=== PATIENT | female | born 1955 | race Caucasian/White ===

== ENCOUNTER 2020-08-10 08:03 | Outpatient (CLI) | payer MEDICARE, OTHER, SELFPAY ==
--- NOTE | 2020-08-11 08:12 | P.PCNPFT_ITS ---
PFT Interpretation This is a pulmonary function test with pre and post-bronchodilator spirometry, plethysmography and diffusing capacity. The test was performed and results interpreted in accordance with the 2019 and 2005 ATS/ERS Task Force guidelines respectively using the Global Lung Function Initiative-2012 reference equations. Patient demonstrated good effort and c ooperation. Reproducibility criteria were met. The quality of the pre bronchodilator spirometry maneuver was Grade B and post bronchodilator spirometry maneuver was Grade A. Of note the patient had persistent coughing during the testing. Findings: Spirometry: There is a low normal maximal expiratory airflow. The contour the inspiratory flow tracing is normal. The pre bronchodilator FVC is 2.42 L, 81% predicted. The pre bronchodilator FEV1 is 1.72 L, 74% predicted. The FEV1: FVC ratio is 71%. The post bronchodilator FVC is 2.32 L, representing a 4% decrease. The post bronchodilator FEV1 is 1.64, representing a 5% decrease. Plethysmography: The total lung capacity is 8.49 L, 167% predicted. The functional residual capacity is 7.17 L, 248% predicted. The residual volume is 6.08 L, 284% predicted. Diffusing capacity: The absolute diffusion capacity is 11.9, 57% predicted. The diffusing capacity corrected for alveolar volume is 3.66, 84% predicted. Impression: The spirometry is normal without evidence of an obstructive abnormality. There is no significant improvement after inhaling a single dose of albuterol. The lung volumes are normal. The diffusing capacity is normal. Impression: There is low normal expiratory flows and a low normal FEV1. This pattern is consistent with small airways disease. The increase in residual volume is consistent with air trapping and hyperinflation is present is demonstrated by the increase in functional residual capacity and total lung capacity. The absolute diffusing capacity is moderately decreased and normalizes when corrected for alveolar volume. There are no prior studies for comparison
== END 2020-08-10 08:04 | disposition home or self-care (01) ==
PROVIDERS: PCP Family Medicine; Visit Provider Family Medicine
DX: R05 Cough (principal)
CPT/HCPCS: 94060; 94726; 94729

== ENCOUNTER 2021-04-17 18:03 | Inpatient (IN) | payer MEDICARE, OTHER, SELFPAY ==
[2021-04-17] VITALS (28 sets, daily range): BP systolic 109–126; BP diastolic 57–88; PULSE 90–132; RESP 13–43; TEMP 36.6–37.7; O2SAT 87–97; BMI 27.0
--- NOTE | ~2021-04-17 | XR_ITS ---
EXAMINATION: XR chest 1V portable EXAM DATE: 04/17/2021 19:08 INDICATION: Shortness of breath, Cough, Intermittent Fever X 4 Days. TECHNIQUE: Portable AP frontal chest x-ray was obtained. There is no prior study for comparison. FINDINGS: Moderate amount of left perihilar predominant airspace disease likely acute process such as pneumonia or edema. Please clinically correlate. Heart is normal in size. No pneumothorax. Some righ t lung granulomata. There is no pneumothorax suspected. There are no pleural effusions. There are mil d bony degenerative changes. IMPRESSION: Moderate amount of left perihilar pneumonia or edema. Reviewed, dictated and finalized at location A. ION BEAMER
--- NOTE | ~2021-04-17 | CT_ITS ---
EXAMINATION: CTA chest PE protocol DATE: 04/18/2021 14:25 INDICATION: Shortness of breath and hypoxia TECHNIQUE: Computed tomography angiography (CTA) of the chest was performed with 100 mL Omnipaque-350 intravenous contrast timed to evaluate the pulmonary arteries. Coronal maximum intensity projection 3D-reconstructions were created by the technologist. The dose-length product (DLP) was 478.21 mGy-cm. Automated exposure control and iterative reconstruction technique were employed. COMPARISON: 09/01/2017 FINDINGS: The pulmonary arteries are well-opacified. No pulmonary embolism is identified. There are d iffuse groundglass opacities throughout the left lung. No pleural effusion or pneumothorax is identif ied. There is an approximately 2.9 x 2.5 cm right perihilar mass versus lymphadenopathy which obstruc ts the middle lobe bronchus causing near complete collapse of the right middle lobe. Cardiomegaly is noted. There is mild mediastinal lymphadenopathy. There is mild thoracic spondylosis. IMPRESSION: 1. No pulmonary embolus. 2. Diffuse groundglass opacities throughout the left lung which could reflect atypical pneumonia vers us pulmonary edema. 3. Right hilar mass obstructing the right middle lobe bronchus and causing near complete collapse of the middle lobe. Finding is concerning for primary bronchogenic carcinoma. Bronchoscopy is recommende d. Reviewed, dictated and finalized at location B. AND FRAMES PRESCRIPTION CLERK IMPRESSION: 1. No pulmonary embolus. 2. Diffuse groundglass opacities throughout the left lung which could reflect a typical pneumonia versus pulmonary edema. 3. Right hilar mass obstructing the right middle lobe bronchus and causing near complete collapse of the middle lobe. Finding is concerning for primary bronch ogenic carcinoma. Bronchoscopy is recommended.
--- NOTE | ~2021-04-17 | XR_ITS ---
EXAMINATION: XR chest 1V portable INDICATION: Pneumonia and shortness of breath TECHNIQUE: Portable AP chest at 0916 hours COMPARISON: 04/17/2021 FINDINGS: There are persistent diffuse asymmetric interstitial and airspace opacities of the left rohini g with slight improvement. No pleural effusion or pneumothorax is identified. The heart size is le l. IMPRESSION: 1. Persistent asymmetric opacities throughout the left lung with slight improvement, consistent with atypical pneumonia versus pulmonary edema. Reviewed, dictated and finalized at location B. OSTRIPPER IMPRESSION: 1. Persistent asymmetric opacities throughout the left lung with slight improve ment, consistent with atypical pneumonia versus pulmonary edema.
--- NOTE | ~2021-04-17 | US_ITS ---
EXAMINATION: US venous doppler [facility] DATE: 04/18/2021 14:49 INDICATION: Shortness of breath TECHNIQUE: Gross scale images without and with compression and Doppler images of the bilateral lower e xtremity veins were obtained. COMPARISON: None FINDINGS: The right common femoral vein, profunda femoral vein, femoral vein, popliteal vein, peroneal trunk, p osterior tibial veins, and greater saphenous vein are patent. The left common femoral vein, profunda femoral vein, femoral vein, popliteal vein, peroneal trunk, po sterior tibial veins, and greater saphenous vein are patent. IMPRESSION: 1. Patent bilateral lower extremity veins. No evidence of deep venous thrombosis. Reviewed, dictated and finalized at location B. PERSON IMPRESSION: 1. Patent bilateral lower extremity veins. No evidence of deep venous thrombosi s.
--- NOTE | 2021-04-17 18:36 | ECG_ITS ---
Measurements Intervals [place] Rate: 129 P: 13 ID: [id number] QRS: -32 QRSD: 71 T: 51 QT: 336 QTc: 493 Interpretive Statements SINUS TACHYCARDIA VENTRICULAR COUPLET AND VENTRICULAR PREMATURE COMPLEX LEFT AXIS DEVIATION ANTERIOR INFARCT, AGE INDETERMINATE INFERIOR INFARCT, AGE INDETERMINATE BORDERLINE ST-T WAVE ABNORMALITY- LAT/HIGH LAT LEADS BASELINE ARTIFACT- I, II, III, AVR, AVF, V1, V3-V6 ABNORMAL ECG Electronically Signed On 04-17-2021 20:17:32 RACK WASHER by Nakul Mar D.O.
--- NOTE | 2021-04-17 18:40 | ED.GENADULT ---
HPI - General Adult General Chief complaint: Shortness of Breath/Dyspnea Stated complaint: SOB Time Seen by Provider: 04/17/21 18:19 Source: patient and RN notes reviewed History of Present Illness HPI narrative: Patient is a 65 y/o female complaining severe SOB for last 4 days. She states her SOB is worse with minimal exertion and supine position. She also has some cough, fever and chest discomfort. She has no leg swelling. Related Data Home Medications Medication Instructions Recorded Confirmed aspirin 325 mg tablet 325 mg PO DAILY 04/20/19 03/13/21 olmesartan [Benicar] 04/17/21 Allergies Allergy/AdvReac Type Severity Reaction Status Date / Time No Known Allergies Allergy Verified 03/13/21 08:54 Review of Systems Constitutional: Constitutional: Denies chills, Reports fever(s), Denies headache(s) and Denies weakness Eyes: Eyes: Denies blurry vision ENT: Denies headache(s) and Denies neck pain Cardiovascular: Cardiovascular: Reports chest pain and Reports dyspnea Respiratory: Respiratory: Reports cough and Reports dyspnea Gastrointestinal: Gastrointestinal: Denies abdominal pain, Denies diarrhea, Denies nausea and Denies vomiting Genitourinary: Genitourinary: Denies hematuria and Denies dysuria Musculoskeletal: Musculoskeletal: Denies back pain and Denies neck pain Neurologic: Denies headache(s) and Denies weakness [facility] Past Medical History Medical History (Updated 04/18/21 @ 01:33 by Madisyn Bergeron MD) Allergic rhinitis Atherosclerotic heart disease of [place] coronary artery without angina pectoris Cataract, bilateral H/O squamous cell carcinoma Mild intermittent asthma Mixed hyperlipidemia [place] (myocardial infarction) Type 2 diabetes mellitus with mild nonproliferative diabetic retinopathy with macular edema, bilateral Type 2 diabetes mellitus without complications Surgical History Surgical History (Updated 03/13/21 @ 09:19 by Josef Gotti MD) H/O percutaneous transluminal coronary angioplasty H/O sinus surgery H/O: hysterectomy History of cataract extraction with lens replacement Family History Family History Sibling Hypertension Father Family history of coronary artery disease Social History Social History Smoking packs per day: 1 Smoking cigarettes per day: 20.0 Years smoked: 35 Smoking pack-years: 35.00 Smoking status: Former smoker Tobacco type: cigarettes Second hand tobacco smoke exposure: No Alcohol intake: never Substance use: never Substance use type: does not use Gender identity (if verbalized by the patient): Female Exam Const: General: well developed, in distress and ill appearing Orientation/consciousness: oriented to person, oriented to place, oriented to time and patient oriented x3 HENMT: Head: normocephalic Ears: external ears normal General nose exam: Normal external nose present Eyes: General: appearance normal, both eyes and all related structures Conjunctivae: conjunctivae normal Neck: Neck: normal visual inspection and full ROM Chest: Chest palpation & inspection: normal inspection of the chest and no tenderness Resp: Effort & Inspection: audible wheezes and tachypneic Auscultation: wheezes Cardio: Rate: tachycardic Rhythm: regular rhythm GI: GI Palp: No abdominal tenderness and Yes Soft to palpation Skin: General skin exam: normal color and turgor normal Neuro: General: oriented to person, oriented to place, oriented to time and patient oriented x3 Cognition (Neuro): normal cognition Extrem: General: normal to inspection, full ROM and no pedal edema Psych: Appearance: grossly normal Mental Status: mental status grossly normal Affect: normal affect Course Consultations Consultation #1: Discussed with Dr. Mckeon, who agrees to admit. Date: 04/17/21 Time: 20:10 Vital Signs Vital signs: Vital S
[2021-04-17] MEDS: ALBUTEROL SULFATE NEB 2.5 MG/0.5 ML INH INHALATION (18:53)
[2021-04-17] MEDS: IPRATROPIUM BR 0.02% INH SOLN 0.5 MG/2.5 ML VIAL INHALATION (18:53)
[2021-04-17 18:55] LABS: Base Excess ABG -2.6 mEq/l (+/-2.0); Fractional Inspired Oxygen 44 %; HCO3 ABG 19.6 mEq/l (22.0-26.0); Oxygen Content ABG 17.6 %vol (16.0-22.0); Oxygen Saturation ABG 90.8 % (95.0-100.0); Oxyhemoglobin 84.8 % THb (90.0-100.0); PCO2 ABG 27.9 mmHg (35.0-45.0); PO2 ABG 54.9 mmHg (80.0-100.0); PO2 FiO2 Ratio Arterial Blood 1.25 %; Total Hemoglobin 14.8 g/dL (12.0-18.0); pH ABG 7.465 (7.350-7.450)
[2021-04-17 18:56] LABS: Device NASAL CANNULA; Site Drawn LEFT BRACHIAL
[2021-04-17 19:09] LABS: Basophils Absolute Auto 0.1 K/mm3 (0.0-0.1); Basophils Percent Auto 0.4 % (0.2-1.2); Eosinophils Percent Auto 0.1 % (0-4.4); Hematocrit 42.2 % (37.0-47.0); Hemoglobin 14.2 g/dL (12.0-15.0); Immature Granulocyte Absolute 0.16 K/mm3 (0.00-0.031); Immature Granulocyte Percent A 0.8 % (0-0.5); Lymphocytes Absolute Auto 0.73 K/mm3 (0.9-3.2); Lymphocytes Percent Auto 3.7 % (18.3-44.2); Mean Corpuscular HGB Conc 33.6 g/dl (32-36); Mean Corpuscular Hemoglobin 29.2 pg (26-34); Mean Corpuscular Volume 86.8 fl (80-100); Mean Platelet Volume 12.2 fl (7.4-10.4); Monocytes Absolute Auto 0.8 K/mm3 (0.1-0.6); Monocytes Percent Auto 4.1 % (2.6-8.5); Neutrophils Absolute Auto 18.1 K/mm3 (1.3-6.7); Neutrophils Percent Auto 90.9 % (45.5-73.1); Platelet Count Result 213 k/mm3 (150-375); Red Blood Count 4.86 M/mm3 (4.2-5.4); Red Cell Distribution Width 14.7 % (11.5-14.5); White Blood Count 19.9 K/mm3 (4.5-10.0)
[2021-04-17 19:18] LABS: INR 1.2; Prothrombin Time 15.2 Seconds (11.1-14.7)
[2021-04-17 19:19] LABS: Partial Thromboplastin Time 27.2 SECONDS (22.3-36.8)
[2021-04-17 19:21] LABS: D Dimer 0.74 ug/mL (<0.48)
[2021-04-17 19:22] LABS: Alanine Aminotransferase 14 U/L (4-35); Albumin Level 4.3 g/dL (3.5-5.1); Alkaline Phosphatase 123 U/L (38-126); Anion Gap 11 mmol/L (8-16); Aspartate Amino Transferase 24 U/L (14-36); Bilirubin,Total 1.3 mg/dL (0.2-1.3); Blood Urea Nitrogen 12 mg/dL (7-17); Calcium 9.3 mg/dL (8.4-10.2); Carbon Dioxide 21 mmol/L (22-30); Chloride 105 mmol/L (98-107); Estimated Glomerular Filt Rate > 60; Glucose 165 mg/dL (65-110); Potassium 3.2 mmol/L (3.4-5.0); Sodium 137 mmol/L (137-145)
[2021-04-17 19:27] LABS: Large Platelets Present; Platelet Estimate Adequate (Adequate)
[2021-04-17 19:31] LABS: NT Pro B Type Natriuretic Pept 1780 pg/mL (5-100)
[2021-04-17 19:35] LABS: Troponin I 0.058 ng/mL (0.000-0.034)
[2021-04-17] MEDS: POTASSIUM CHLORIDE 20 MEQ TABLET 40 MEQ PO (20:17)
--- NOTE | 2021-04-17 20:19 | PM.IMHP ---
H&P: HPI History of Present Illness Date/Time: 04/17/21 20:19 Chief Complaint: Shortness of breath Narrative: This is a 65-year-old female with past medical history significant for COPD/emphysema, tobacco dependence, patient had more smokes 1 pack of cigarettes per day, chronic bronchitis, type 2 diabetes mellitus, chronic hypoxic respiratory failure, dyslipidemia. Patient presented to the emergency room via EMS due to worsening shortness of breath for the last 2 days or so, according to EMS on arrival she was saturating in the 70% on room air, patient denies any fevers any chills any rigors, she has productive cough of scanty whitish sputum non changed from her usual, denies any nausea, any vomiting, any diarrhea, any abdominal pain, no leg swelling, she is not on supplemental oxygen at home, she has been in her usual state of health up until 2 days ago she noticed progressively worsening of shortness of breath mainly at exertion. Preliminary workup was significant for chest x-ray with left lung infiltrates, an ABG showed a pH of 7.4, pCO2 of 27 PO2 of 54, patient was placed on supplemental oxygen by nasal cannula, a COVID-19 PCR is currently pending. Decision has been made to admit the patient for further management evaluation and treatment. Review of Systems Review of Systems: Progressively worsening shortness of breath of 2 days duration, productive cough of scanty whitish sputum. Constitutional: Constitutional: Denies chills, Denies fatigue, Denies fever(s), Denies lethargy, Denies night sweats, Denies poor appetite and Denies weakness Eyes: Eyes: Denies change in vision ENT: Denies dysphagia, Denies nasal congestion, Denies nasal discharge, Denies nasal obstruction and Denies odynophagia Cardiovascular: Cardiovascular: Denies chest pain at rest, Denies irregular heart rhythm, Denies claudication, Denies lightheadedness, Denies radiating jaw, neck or arm pain, Denies palpitations and Denies paroxysmal nocturnal dyspnea Respiratory: Respiratory: Denies change in phlegm color, Reports cough, Denies excessive phlegm production, Reports dyspnea on exertion and Reports wheezing Gastrointestinal: Gastrointestinal: Denies abdominal pain, Denies dyspepsia, Denies heartburn, Denies diarrhea, Denies nausea and Denies vomiting Genitourinary: Genitourinary: Denies dysuria Musculoskeletal: Musculoskeletal: Denies arthralgias, Denies joint swelling and Denies muscle weakness Integumentary/Breasts: Skin/Breast: Denies rash Neurologic: Denies focal weakness and Denies Sensory deficit (Neuro) Psychiatric: Psychiatric: Reports no additional psychiatric complaints and Reports as per HPI Endocrine: Endocrine: Reports no additional endocrine complaints and Reports as per HPI Hematologic/Lymphatic: Hematologic/Lymphatic: Reports no additional hematologic/lymphatic complaints and Reports as per HPI Allergic/Immunologic: Allergic/Immunologic: Reports no additional allergic/immunologic complaints and Reports as per HPI [facility] Past Medical History Medical History (Updated 04/18/21 @ 01:33 by Madisyn Bergeron MD) Allergic rhinitis Atherosclerotic heart disease of [place] coronary artery without angina pectoris Cataract, bilateral H/O squamous cell carcinoma Mild intermittent asthma Mixed hyperlipidemia [place] (myocardial infarction) Type 2 diabetes mellitus with mild nonproliferative diabetic retinopathy with macular edema, bilateral Type 2 diabetes mellitus without complications Surgical History Surgical History (Updated 03/13/21 @ 09:19 by Josef Gotti MD) H/O percutaneous transluminal coronary angioplasty H/O sinus surgery H/O: hysterectomy History of cataract extraction with lens replacement Family History Family History Sibling Hypertension Father Family history of coronary artery disease Social History Social History Smoking packs
[2021-04-17] MEDS: FUROSEMIDE INJ 40 MG/4 ML VIAL IV PUSH (20:23)
[2021-04-17 20:54] LABS: Lactic Acid Reflex 2.3 mmol/L (0.7-2.1)
[2021-04-17 22:27] LABS: Troponin I 0.071 ng/mL (0.000-0.034)
[2021-04-17] MEDS: methylPREDNISolone SOD SUCC 40 MG VIAL IV PUSH (23:12)
[2021-04-17 23:41] LABS: Reflex Lactic Acid Yes or No Add Lactic
[2021-04-18] VITALS (26 sets, daily range): BP systolic 97–127; BP diastolic 41–89; PULSE 58–100; RESP 12–24; TEMP 36.1–37.2; O2SAT 90–98
--- NOTE | 2021-04-18 01:48 | ADMGEN ---
This patient, Ashley Norton, was admitted to IMU Room 214-01. Patient/family oriented to hospital policies and general routines including ID bracelet, bed and alarms, visiting hours, pain management, procedures, bathroom and other care routines, personal items, smoking policy, room service/diet, and visiting hours. Information on how to activate the Rapid Response Team has been discussed. Patient/Family are encouraged to report perceived risks to care and to ask questions if they do not understand what they are told or what they should do.
[2021-04-18 01:50] LABS: Lactic Acid 2.4 mmol/L (0.7-2.1)
[2021-04-18 02:10] LABS: Troponin I 0.053 ng/mL (0.000-0.034)
[2021-04-18] MEDS: IPRATROPIUM BR 0.02% INH SOLN 0.5 MG/2.5 ML VIAL INHALATION ×4 (02:43→20:44)
[2021-04-18] MEDS: ALBUTEROL SULFATE NEB 2.5 MG/0.5 ML INH 5 MG INHALATION ×4 (02:43→20:44)
[2021-04-18] MEDS: ENOXAPARIN 40 MG/0.4 ML SYRINGE SUB-Q (08:32)
[2021-04-18] MEDS: methylPREDNISolone SOD SUCC 40 MG VIAL IV PUSH ×2 (08:32→20:10)
[2021-04-18] MEDS: INSULIN ASPART (*BKC) 100 UNITS/ML SUB-Q (08:33)
[2021-04-18] MEDS: METOPROLOL TARTRATE 25 MG TABLET PO ×2 (08:34→20:10)
[2021-04-18 09:02] LABS: Glucose Point of Care 165 mg/dl (65-105)
--- NOTE | 2021-04-18 11:04 | PM.IMPN ---
Progress Note: A&P Assessment and Plan (1) Sepsis: Qualifiers: Sepsis acute organ dysfunction status: unspecified Sepsis type: sepsis due to unspecified organism Qualified Code(s): A41.9 - Sepsis, unspecified organism Code(s): A41.9 - Sepsis, unspecified organism Status: Acute Assessment and Plan: Present on admission with tachypnea, tachycardia, lactic acidosis and leukocytosis. [place] related to her pneumonia. Respiratory failure also contributing to this because her pulse ox was 88% on 4L (By EMS, she was 78% on room air). Continue IV antibiotics. Monitor white count. Follow up on blood culture results. Urinalysis was not collected. Patient is asymptomatic and already on antibiotics so will not proceed with UA at this time. (2) Acute respiratory failure: Code(s): J96.00 - Acute respiratory failure, unspecified whether with hypoxia or hypercapnia Status: Acute Assessment and Plan: Patient presents with a 4 days hx of worsening SOB. ABG 7.47/28/55 on 6L. CXR as mentioned below. She was treated with Lasix x1, neb treatments, steroids and abx. Supplemental O2 to 12L. She is feeling better today. Plan to continue current treatment plans. Wean o2 as toelrated. DDimer is positive so mago proceed with LE dopplers and CTA chest. (3) Acute exacerbation of chronic obstructive pulmonary disease: Code(s): J44.1 - Chronic obstructive pulmonary disease with (acute) exacerbation Status: Acute Assessment and Plan: Patient with acute respiratory failure felt related to COPD exacerbation. Continue steroids IV, neb treatments and abx. Smoking cessation is a must. Wean O2 as tolerated. (4) Elevated troponin: Code(s): R77.8 - Other specified abnormalities of plasma proteins Status: Acute Assessment and Plan: Trop peaked at 0.071. EKG showing borderline changes and with artifact. Will repeat. Suspect however this is nonischemic myocardial injury related to the respiratory failure. Check Echo. Continue ASA, Metoprolol and Lipitor. (5) Pneumonia involving left lung: Qualifiers: Lung location: unspecified part of lung Pneumonia type: due to unspecified organism Qualified Code(s): J18.9 - Pneumonia, unspecified organism Code(s): J18.9 - Pneumonia, unspecified organism Status: Acute Assessment and Plan: Chest x-ray shows moderate amount of left perihilar airspace disease either pneumonia versus edema. She was started on Rocephin and Zithromax which will continue. Troponins are mildly elevated. BNP was 1760. She was given 1 dose of Lasix IV in the ED but UOP was not brisk. Check Echo. Continue abx. Wean O2 as toelrated. (6) Person under investigation for COVID-19: Code(s): Z20.822 - Contact with and (suspected) exposure to COVID-19 Status: Acute Assessment and Plan: Person is being tested for COVID. Continue isolation with standard precautions until result is known. (7) HTN (hypertension), benign: Code(s): I10 - Essential (primary) hypertension Status: Acute Assessment and Plan: Patient's blood pressure was reviewed on 04/18 Blood pressure remains well controlled. Will continue current medications. (8) Type 2 diabetes mellitus without complications: Code(s): E11.9 - Type 2 diabetes mellitus without complications Status: Acute Assessment and Plan: The patient's blood glucose was reviewed on 04/18 Glucose remains well controlled. Continue AccuCheks covering with sliding scale. Hypoglycemia protocol available as needed. Metformin remains on hold. (9) Tobacco abuse: Code(s): Z72.0 - Tobacco use Status: Acute Assessment and Plan: Patient states that she smokes a pack a day last 35 years at least. She was educated about the benefits of smoking cessation. (10) DVT prophylaxis: Code(s): Z29.9 - Encounter for prophyla
[2021-04-18 12:25] LABS: Glucose Point of Care 118 mg/dl (65-105)
[2021-04-18] MEDS: AZITHROMYCIN 250 MG TABLET PO (12:28)
[2021-04-18] MEDS: ATORVASTATIN 40 MG TABLET PO (12:28)
[2021-04-18] MEDS: ASPIRIN 325 MG TABLET PO (12:28)
--- NOTE | 2021-04-18 16:40 | ECG_ITS ---
Measurements Intervals [place] Rate: 75 P: 18 [place]: 160 QRS: -19 QRSD: 75 T: -28 QT: 377 QTc: 423 Interpretive Statements SINUS RHYTHM POSSIBLE LEFT ATRIAL ENLARGEMENT LOW QRS VOLTAGE IN PRECORDIAL LEADS ANTEROSEPTAL INFARCT, AGE INDETERMINATE CONSIDER INFERIOR INFARCT, AGE INDETERMINATE BORDERLINE ST-T WAVE ABNORMALITY- ANTEROLAT/HIGH LAT LEADS ABNORMAL ECG Electronically Signed On 04-18-2021 20:12:46 TIE TAMPER by Nakul Mar D.O.
[2021-04-18 16:43] LABS: Glucose Point of Care 149 mg/dl (65-105)
--- NOTE | 2021-04-18 16:55 | ECG_ITS ---
Measurements Intervals [place] Rate: 72 P: -79 [place]: 129 QRS: -23 QRSD: 74 T: 263 QT: 386 QTc: 424 Interpretive Statements ECTOPIC ATRIAL RHYTHM VENTRICULAR PREMATURE COMPLEX ANTEROSEPTAL INFARCT, AGE INDETERMINATE CONSIDER INFERIOR INFARCT, AGE INDETERMINATE BORDERLINE ST-T WAVE ABNORMALITY- ANTEROLAT/HIGH LAT LEADS BASELINE ARTIFACT- II, III, AVF, V5 ABNORMAL ECG Electronically Signed On 04-18-2021 20:13:50 PLACEMENT MANAGER by Nakul Mar D.O.
[2021-04-18 18:11] LABS: SARS-CoV-2 RNA PCR Negative
[2021-04-18 18:14] LABS: Anion Gap 12 mmol/L (8-16); Blood Urea Nitrogen 22 mg/dL (7-17); Calcium 9.7 mg/dL (8.4-10.2); Carbon Dioxide 25 mmol/L (22-30); Chloride 102 mmol/L (98-107); Estimated CRCL calculation 63 ml/min; Estimated Glomerular Filt Rate > 60; Glucose 141 mg/dL (65-110); Magnesium 2.1 mg/dL (1.6-2.3); Phosphorus 2.9 mg/dL (2.5-4.5); Potassium 3.3 mmol/L (3.4-5.0); Sodium 139 mmol/L (137-145)
[2021-04-18 20:03] LABS: Glucose Point of Care 199 mg/dl (65-105)
[2021-04-18] MEDS: KCL 20 MEQ/SW 100 ML 100 ML 50 MEQ IVPB (20:10)
[2021-04-18 20:20] LABS: Influenza Control Positive
[2021-04-19] VITALS (25 sets, daily range): BP systolic 108–141; BP diastolic 42–72; PULSE 50–91; RESP 16–28; TEMP 36.3–37.4; O2SAT 93–100
--- NOTE | 2021-04-19 | ECHO_ITS ---
Patient Info Name: Ashley Norton Age: 65 years : 1955 Gender: Female Ht: 66 in Wt: 167 lbs BSA: 1.89 m2 HR: 73 bpm BP: 141 / 72 mmHg Heart Rhythm: Sinus Rhythm Technical Quality: Fair Exam Date: 04/19/2021 12:32 PM Exam Location: [facility] Pulmonary Patient Status: Inpatient Admit Date: 04/17/2021 Staff Ordering Physician: Mati Razo MD Ict Development Manager: Sandra Jean RDCS Attending Provider: Tiffanie Mckeon MD Exam Type: CA echo dop color flow w con Study Info Indications R06.02 - Shortness of breath Complete two-dimensional, color flow and Doppler transthoracic echocardiogram is performed with contrast to opacify the left ventricle and to improve the deliniation of the left ventricle endocardial borders. Contrast/Agitated Saline Contrast/Ag. Saline: Definity Amount: 2.00 ml Administered By: Everardo Peralta RN Existing IV Access: Yes IV Access Condition: patent with no signs of infiltration Summary 1. Normal left ventricular size with mild concentric hypertrophy. There is hyperdynamic left ventricular systolic function of all segments with no segmental wall motion abnormalities. Ejection fraction is greater than 70%. Grade 1 diastolic dysfunction is present. 2. Left atrial chamber dimension is mildly enlarged. 3. No significant valve disease. 4. Dilated inferior vena cava with >50% collapse upon inspiration consistent with elevated right atrial pressure, 15 mmHg. 5. Borderline pulmonary hypertension, estimated pulmonary arterial systolic pressure is 36 mmHg. 6. Normal sinus rhythm. 7. Technically difficult study; definity echo contrast used. Left Ventricle Left ventricular chamber dimension is normal. Left ventricular systolic function is normal, estimated at >70%. There is mildly increased left ventricular wall thickness. Left ventricular septal wall motion is normal. The left ventricular diastolic function is grade I diastolic dysfunction. Right Ventricle Right ventricular chamber dimension is normal. Right ventricular systolic function is normal. Left Atria Left atrial chamber dimension is mildly enlarged. Right Atria Right atrial chamber dimension is normal. Aortic Valve The aortic valve is trileaflet. There is no aortic valve sclerosis. There is no aortic valve stenosis. There is no aortic valve regurgitation. Pulmonic Valve The pulmonic valve is normal. There is no pulmonic valve stenosis. There is trace pulmonic regurgitation. Mitral Valve The mitral valve has normal leaflets. There is no mitral valve stenosis. There is no mitral valve regurgitation. Tricuspid Valve The tricuspid valve leaflets are normal. There is no significant tricuspid valve stenosis. There is trace tricuspid valve regurgitation. Borderline pulmonary hypertension, estimated pulmonary arterial systolic pressure is 36 mmHg. Pericardium/Pleural The pericardium appears normal. There is no pericardial effusion. Inferior Vena Cava Dilated inferior vena cava with >50% collapse upon inspiration consistent with elevated right atrial pressure, 15 mmHg. Aorta The aortic root size at the sinus of Valsalva is normal. The prox ascending aorta size is normal. Left Ventricular Outflow Tract Name Value Normal
[2021-04-19] MEDS: ALBUTEROL SULFATE NEB 2.5 MG/0.5 ML INH 5 MG INHALATION ×4 (02:29→19:31)
[2021-04-19] MEDS: IPRATROPIUM BR 0.02% INH SOLN 0.5 MG/2.5 ML VIAL INHALATION ×4 (02:29→19:32)
[2021-04-19 05:37] LABS: Basophils Percent Auto 0.2 % (0.2-1.2); Hematocrit 39.7 % (37.0-47.0); Hemoglobin 12.8 g/dL (12.0-15.0); Immature Granulocyte Absolute 0.23 K/mm3 (0.00-0.031); Lymphocytes Absolute Auto 0.94 K/mm3 (0.9-3.2); Lymphocytes Percent Auto 4.2 % (18.3-44.2); Mean Corpuscular HGB Conc 32.2 g/dl (32-36); Mean Corpuscular Hemoglobin 28.4 pg (26-34); Mean Platelet Volume 12.7 fl (7.4-10.4); Monocytes Absolute Auto 0.6 K/mm3 (0.1-0.6); Monocytes Percent Auto 2.8 % (2.6-8.5); Neutrophils Absolute Auto 20.5 K/mm3 (1.3-6.7); Neutrophils Percent Auto 91.8 % (45.5-73.1); Platelet Count Result 223 k/mm3 (150-375); Red Blood Count 4.51 M/mm3 (4.2-5.4); Red Cell Distribution Width 14.6 % (11.5-14.5); White Blood Count 22.3 K/mm3 (4.5-10.0)
[2021-04-19 05:51] LABS: Alanine Aminotransferase 17 U/L (4-35); Albumin Level 3.7 g/dL (3.5-5.1); Alkaline Phosphatase 113 U/L (38-126); Anion Gap 9 mmol/L (8-16); Aspartate Amino Transferase 28 U/L (14-36); Bilirubin,Total 0.4 mg/dL (0.2-1.3); Blood Urea Nitrogen 23 mg/dL (7-17); Calcium 9.5 mg/dL (8.4-10.2); Carbon Dioxide 26 mmol/L (22-30); Chloride 105 mmol/L (98-107); Estimated CRCL calculation 56 ml/min; Estimated Glomerular Filt Rate > 60; Glucose 190 mg/dL (65-110); Magnesium 2.2 mg/dL (1.6-2.3); Phosphorus 4.8 mg/dL (2.5-4.5); Potassium 3.9 mmol/L (3.4-5.0); Sodium 140 mmol/L (137-145)
[2021-04-19 06:17] LABS: Atypical Lymphocytes Present; Platelet Estimate Adequate (Adequate)
[2021-04-19 06:24] LABS: Thyroid Stimulating Hormone Reflex 0.838 uIU/mL (0.465-4.68)
--- NOTE | 2021-04-19 08:49 | PM.CNPUL ---
Assessment and Plan Assessment and plan (1) Pneumonia involving left lung: Qualifiers: Lung location: unspecified part of lung Pneumonia type: due to unspecified organism Qualified Code(s): J18.9 - Pneumonia, unspecified organism Code(s): J18.9 - Pneumonia, unspecified organism Status: Acute Assessment and Plan: Patient presents with shortness of breath, increased cough, increased clear phlegm, chills, leukocytosis, lactic acidosis with unilateral left-sided ground-glass infiltrates. COVID RT PCR test is negative. Influenza swab is negative. Additional testing for other respiratory viral pathogens, mycoplasma, chlamydia, and Bordetella are pending. Blood cultures are negative. Patient was treated with ceftriaxone and azithromycin and after 36 hours she states she has 75-80% better. I agree with current antibiotic regimen. I will check a chest x-ray today. Patient with a long history of reactive airways disease and she may have asthma and/or COPD given her smoking history. Patient is currently on Solu-Medrol 40 q.12 hours, albuterol 2.5 q.6 nebs, ipratropium 0.5 q.6 nebs. She has no wheezing at this time and I will switch her to prednisone 50 today. continue albuterol and ipratropium nebulizers. eventually she will need outpatient PFTs to assess her lung function, bronchodilator response, lung volumes and DLCO. (2) Lung mass: Code(s): R91.8 - Other nonspecific abnormal finding of lung field Status: Acute Assessment and Plan: Patient had a CT angiogram of the chest 04/18 that showed no pulmonary embolism, diffuse ground-glass infiltrates of the left lung, right hilar mass with narrowing of the right upper lobe bronchus, mass effect on the right pulmonary artery, narrowing of the bronchus intermedius and narrowing of the right middle lobe with consolidation in the lateral segment of the right middle lobe. she had a CT scan of the chest on 09/01/2017 with calcified right lung nodules, calcified right hilar and mediastinal lymph nodes consistent with OG D, mosaic attenuation, peripheral reticular opacities and ground-glass opacities in the lung left worse than right, in numeral nodule superior segment the right lower lobe and calcifications in the spleen consistent with OG D. Differential diagnosis includes lung cancer and possible fibrosing mediastinitis. Once patient is stabilized from her acute infection and bronchospasm she will require an outpatient bronchoscopy with biopsy and possible crenshaw needle aspirate of right paratracheal/hilar mass. Will follow with you. History of Present Illness History of Present Illness Consult date: 04/19/21 Requesting physician: Mati Razo MD Reason for consult: pneumonia and lung mass Chief complaint: Acute Hypoxic Respiratory Failure, Pneumonia Narrative: 04/19/2021 this is a new pulmonary consult for pneumonia and lung mass 65-year-old woman with diabetes, hyperlipidemia, current tobacco use (total 47 PY) chronic bronchitis on inhalers since age 28 presented to the hospital on 04/17 with 4 days worsening dyspnea on exertion such that she could only walk 1-2 steps, increasing cough associated with wheezing, increasing production of clear phlegm and chest pain with her coughing episodes. Patient also states that on 04/17 she had chills. patient had a white blood cell count of 19.9, lactic acid of 2.3 a D-dimer of 0.74, troponins that peaked at 0.071, BNP of 17 [address] Patient had a CT angiogram of the chest that showed no pulmonary embolism, diffuse ground-glass infiltrates of the left lung, right hilar mass with narrowing of the right upper lobe bronchus, mass effect on the right pulmonary artery, narrowing of the bronchus intermedius and narrowing of the right middle lobe with consolidation in the lateral segment of the right middle lobe. she had a CT scan of the chest on 09/01/2017 with calcified right lung nodules, calcified right hilar and
[2021-04-19 08:59] LABS: Glucose Point of Care 156 mg/dl (65-105)
[2021-04-19] MEDS: AZITHROMYCIN 250 MG TABLET PO (09:45)
[2021-04-19] MEDS: ENOXAPARIN 40 MG/0.4 ML SYRINGE SUB-Q (09:45)
[2021-04-19] MEDS: INSULIN ASPART (*BKC) 100 UNITS/ML SUB-Q ×3 (09:49→16:53)
[2021-04-19] MEDS: predniSONE 10 MG TABLET 50 MG PO (10:45)
[2021-04-19] MEDS: ATORVASTATIN 40 MG TABLET PO (10:46)
[2021-04-19] MEDS: ASPIRIN 325 MG TABLET PO (10:46)
--- NOTE | 2021-04-19 11:39 | PM.IMPN ---
Progress Note: A&P Assessment and Plan (1) Sepsis: Qualifiers: Sepsis acute organ dysfunction status: unspecified Sepsis type: sepsis due to unspecified organism Qualified Code(s): A41.9 - Sepsis, unspecified organism Code(s): A41.9 - Sepsis, unspecified organism Status: Acute Assessment and Plan: Present on admission with tachypnea, tachycardia, lactic acidosis and leukocytosis. [place] related to her pneumonia. Respiratory failure also contributing to this because her pulse ox was 88% on 4L (By EMS, she was 78% on room air). Continue IV antibiotics. WBC higher but could be related to the steroids. Monitor white count. BCx NGTD. Continue current abx. Follow up on other results. (2) Acute respiratory failure: Code(s): J96.00 - Acute respiratory failure, unspecified whether with hypoxia or hypercapnia Status: Acute Assessment and Plan: Patient presents with a 4 days hx of worsening SOB. ABG 7.47/28/55 on 6L. CXR an CTA chest as mentioned below. Respiratory failure related to COPD exacerbation and PNA. She was treated with Lasix x1, neb treatments, steroids and abx. Able to wean supplemental O2. She is feeling better today. Plan to continue current treatment plans. Wean O2 as tolerated. (3) Lung mass: Code(s): R91.8 - Other nonspecific abnormal finding of lung field Status: Acute Assessment and Plan: CTA chest performed due to +DDimer. CTA showing right hilar mass obstructing the right middle lobe bronchus and causing near complete collapse of the middle lobe. Finding is concerning for primary bronchogenic carcinoma. Pulmonary consult obtained. Plan for further evaluation once her current infection has cleared. Appreciate pulmonary input. (4) Acute exacerbation of chronic obstructive pulmonary disease: Code(s): J44.1 - Chronic obstructive pulmonary disease with (acute) exacerbation Status: Acute Assessment and Plan: Patient with acute respiratory failure felt related to COPD exacerbation and PNA. Continue steroids, neb treatments and abx. Smoking cessation is a must. Wheezing more today but could be opening up. Repeat CXR showing slight improvement with left sided airspace opacities. Able to wean oxygen. Continue to wean O2 as tolerated. (5) Elevated troponin: Code(s): R77.8 - Other specified abnormalities of plasma proteins Status: Acute Assessment and Plan: Trop peaked at 0.071. EKG showing borderline changes and with artifact. Repeat showing borderline ST-T wave changes and possibly old infarcts. Tele showing frequent PVCs and ectopic atrial foci. Suspect however this is nonischemic myocardial injury related to the respiratory failure. Echo pending. Continue ASA, Metoprolol and Lipitor. (6) Pneumonia involving left lung: Qualifiers: Lung location: unspecified part of lung Pneumonia type: due to unspecified organism Qualified Code(s): J18.9 - Pneumonia, unspecified organism Code(s): J18.9 - Pneumonia, unspecified organism Status: Acute Assessment and Plan: Chest x-ray shows moderate amount of left perihilar airspace disease either pneumonia versus edema. She was started on Rocephin and Zithromax. CTA of the chest shows diffuse ground-glass opacities throughout the left lung atypical pneumonia versus edema. COVID and influenza negative. Testing for other viral and atypical pathogens. Troponins are mildly elevated. BNP was 1760. She was given 1 dose of Lasix IV in the ED but UOP was not brisk. Echo pending. Continue abx. Hypoxia is improving. Wean O2 as tolerated. (7) HTN (hypertension), benign: Code(s): I10 - Essential (primary) hypertension Status: Acute Assessment and Plan: Patient's blood pressure was reviewed on 04/19 Blood pressure remains well controlled. Will continue current medications. (8) Type 2 diabetes mellitus without complications:
[2021-04-19] MEDS: PERFLUTREN LIPID MICROSPHERES 1.5 ML VIAL DILUTED TO 10 ML TOTAL VOLUME IV PUSH (12:01)
[2021-04-19 12:41] LABS: Glucose Point of Care 102 mg/dl (65-105)
--- NOTE | 2021-04-19 13:16 | PC.NURSE ---
On 04/19/21, the student, [Andrés Alcala], provided care and completed [facility] documentation on this patient. I have reviewed the student's documentation and agree with the findings.
[2021-04-19 16:47] LABS: Glucose Point of Care 141 mg/dl (65-105)
[2021-04-19] MEDS: METOPROLOL TARTRATE 25 MG TABLET PO (20:06)
[2021-04-19 21:11] LABS: Glucose Point of Care 146 mg/dl (65-105)
[2021-04-20] VITALS (30 sets, daily range): BP systolic 110–163; BP diastolic 47–66; PULSE 40–97; RESP 16–24; TEMP 36–36.8; O2SAT 93–100
[2021-04-20] MEDS: ALBUTEROL SULFATE NEB 2.5 MG/0.5 ML INH 5 MG INHALATION (02:03)
[2021-04-20] MEDS: IPRATROPIUM BR 0.02% INH SOLN 0.5 MG/2.5 ML VIAL INHALATION ×5 (02:03→20:13)
[2021-04-20 05:30] LABS: Basophils Percent Auto 0.1 % (0.2-1.2); Eosinophils Percent Auto 0.2 % (0-4.4); Hemoglobin 12.8 g/dL (12.0-15.0); Immature Granulocyte Percent A 0.6 % (0-0.5); Lymphocytes Absolute Auto 2.09 K/mm3 (0.9-3.2); Lymphocytes Percent Auto 12.1 % (18.3-44.2); Mean Corpuscular Hemoglobin 28.9 pg (26-34); Mean Corpuscular Volume 90.3 fl (80-100); Mean Platelet Volume 12.3 fl (7.4-10.4); Monocytes Absolute Auto 0.9 K/mm3 (0.1-0.6); Monocytes Percent Auto 5.4 % (2.6-8.5); Neutrophils Absolute Auto 14.2 K/mm3 (1.3-6.7); Neutrophils Percent Auto 81.6 % (45.5-73.1); Platelet Count Result 232 k/mm3 (150-375); Red Blood Count 4.43 M/mm3 (4.2-5.4); Red Cell Distribution Width 14.6 % (11.5-14.5); White Blood Count 17.3 K/mm3 (4.5-10.0)
[2021-04-20 05:50] LABS: Anion Gap 7 mmol/L (8-16); Blood Urea Nitrogen 22 mg/dL (7-17); CRP 3.4 mg/dL (<1.0); Calcium 9.4 mg/dL (8.4-10.2); Carbon Dioxide 29 mmol/L (22-30); Chloride 104 mmol/L (98-107); Estimated CRCL calculation 63 ml/min; Estimated Glomerular Filt Rate > 60; Glucose 139 mg/dL (65-110); Potassium 4.1 mmol/L (3.4-5.0); Sodium 140 mmol/L (137-145)
--- NOTE | 2021-04-20 08:32 | PM.PNPUL ---
Progress Note: A&P Assessment and Plan (1) Pneumonia involving left lung: Qualifiers: Lung location: unspecified part of lung Pneumonia type: due to unspecified organism Qualified Code(s): J18.9 - Pneumonia, unspecified organism Code(s): J18.9 - Pneumonia, unspecified organism Status: Acute Assessment and Plan: 04/19 Patient presents with shortness of breath, increased cough, increased clear phlegm, chills, leukocytosis, lactic acidosis with unilateral left-sided ground-glass infiltrates. COVID RT PCR test is negative. Influenza swab is negative. Additional testing for other respiratory viral pathogens, mycoplasma, chlamydia, and Bordetella are pending. Blood cultures are negative. Patient was treated with ceftriaxone and azithromycin and after 36 hours she states she has 75-80% better. I agree with current antibiotic regimen. I will check a chest x-ray today. Patient with a long history of reactive airways disease and she may have asthma and/or COPD given her smoking history. Patient is currently on Solu-Medrol 40 q.12 hours, albuterol 2.5 q.6 nebs, ipratropium 0.5 q.6 nebs. She has no wheezing at this time and I will switch her to prednisone 50 today. continue albuterol and ipratropium nebulizers. eventually she will need outpatient PFTs to assess her lung function, bronchodilator response, lung volumes and DLCO. 04/19 Patient clinically unchanged from yesterday, white blood cell count improved to 17.3, chest x-ray from yesterday with slight improvement on the left. Patient with a few end expiratory wheezes today and I will continue prednisone 50 today and increased her albuterol and ipratropium nebulizers to q.4 hours standing. Disccontinue trelegy inhaler for now As she is on maximal beta agonists and muscarinic antagonist and oral prednisone. in my opinion she is not ready for discharge today and will re-evaluate tomorrow. (2) Lung mass: Code(s): R91.8 - Other nonspecific abnormal finding of lung field Status: Acute Assessment and Plan: 04/[address] angiogram of the chest 04/18 that showed no pulmonary embolism, diffuse ground-glass infiltrates of the left lung, right hilar mass with narrowing of the right upper lobe bronchus, mass effect on the right pulmonary artery, narrowing of the bronchus intermedius and narrowing of the right middle lobe with consolidation in the lateral segment of the right middle lobe. she had a CT scan of the chest on 09/01/2017 with calcified right lung nodules, calcified right hilar and mediastinal lymph nodes consistent with OG D, mosaic attenuation, peripheral reticular opacities and ground-glass opacities in the lung left worse than right, in numeral nodule superior segment the right lower lobe and calcifications in the spleen consistent with OG D. Patient with unintentional 10 lb weight loss in the last 4 months and differential diagnosis includes lung cancer and possible fibrosing mediastinitis. Once patient is stabilized from her acute infection and bronchospasm she will require an outpatient bronchoscopy with biopsy and possible crenshaw needle aspirate of right paratracheal/hilar mass. 04/20 Will delay bronchoscopy given the patient's acute infection, hypoxia and bronchospasm. Will follow with you. Subjective Date/time seen: 04/20/21 08:32 Interval history: 04/19/2021 this is a new pulmonary consult for pneumonia and lung mass 65-year-old woman with diabetes, hyperlipidemia, current tobacco use (total 47 PY) chronic bronchitis on inhalers since age 28 presented to the hospital on 04/17 with 4 days worsening dyspnea on exertion such that she could only walk 1-2 steps, increasing cough associated with wheezing, increasing production of clear phlegm and chest pain with her coughing episodes. Patient also states that on 04/17 she had chills. patient had a white blood cell count of 19.9, lactic acid of 2.3 a D-dimer of 0.74, tr
[2021-04-20 09:15] LABS: Glucose Point of Care 105 mg/dl (65-105)
[2021-04-20] MEDS: FUROSEMIDE INJ 40 MG/4 ML VIAL 20 MG IV PUSH ×3 (09:31→20:08)
[2021-04-20] MEDS: ASPIRIN 325 MG TABLET PO (09:32)
[2021-04-20] MEDS: ENOXAPARIN 40 MG/0.4 ML SYRINGE SUB-Q (09:32)
[2021-04-20] MEDS: predniSONE 10 MG TABLET 50 MG PO (09:33)
[2021-04-20] MEDS: ATORVASTATIN 40 MG TABLET PO (09:34)
[2021-04-20] MEDS: AZITHROMYCIN 250 MG TABLET PO (09:35)
[2021-04-20] MEDS: ALBUTEROL SULFATE NEB 2.5 MG/0.5 ML INH INHALATION ×4 (09:58→20:13)
--- NOTE | 2021-04-20 10:10 | PM.IMPN ---
Progress Note: A&P Assessment and Plan (1) Sepsis: Qualifiers: Sepsis acute organ dysfunction status: unspecified Sepsis type: sepsis due to unspecified organism Qualified Code(s): A41.9 - Sepsis, unspecified organism Code(s): A41.9 - Sepsis, unspecified organism Status: Acute Assessment and Plan: Present on admission with tachypnea, tachycardia, lactic acidosis and leukocytosis. [place] related to her pneumonia. Respiratory failure also contributing to this because her pulse ox was 88% on 4L (By EMS, she was 78% on room air). Continue IV antibiotics. WBC trending down now and no fevers. Monitor white count. BCx NGTD. Continue current abx. Follow up on other results. (2) Acute respiratory failure: Code(s): J96.00 - Acute respiratory failure, unspecified whether with hypoxia or hypercapnia Status: Acute Assessment and Plan: Patient presents with a 4 days hx of worsening SOB. ABG 7.47/28/55 on 6L. CXR an CTA chest as mentioned below. Respiratory failure related to COPD exacerbation and PNA. She was treated with Lasix x1, neb treatments, steroids and abx. Echo has returned showing EF 70% with Grade I diastolic dysfunction, elevate RAP and borderline pHTN. Able to wean supplemental O2. She is feeling better since admission. Plan to continue current treatment plans. Wean O2 as tolerated. Lasix IV. (3) Lung mass: Code(s): R91.8 - Other nonspecific abnormal finding of lung field Status: Acute Assessment and Plan: CTA chest performed due to +DDimer. CTA showing right hilar mass obstructing the right middle lobe bronchus and causing near complete collapse of the middle lobe. Finding is concerning for primary bronchogenic carcinoma. Pulmonary consult obtained. Plan for further evaluation once her current infection has cleared. Appreciate pulmonary input. (4) Acute exacerbation of chronic obstructive pulmonary disease: Code(s): J44.1 - Chronic obstructive pulmonary disease with (acute) exacerbation Status: Acute Assessment and Plan: Patient with acute respiratory failure felt related to COPD exacerbation and PNA. Continue steroids, neb treatments and abx. Smoking cessation is a must. Wheezing persistent but better today. Repeat CXR 04/19 showing slight improvement with left sided airspace opacities. Able to wean oxygen. Continue to wean O2 as tolerated. Wheezing can be related to pulmonary edema so will try lasix (5) Elevated troponin: Code(s): R77.8 - Other specified abnormalities of plasma proteins Status: Acute Assessment and Plan: Trop peaked at 0.071. EKG showing borderline changes and with artifact. Repeat showing borderline ST-T wave changes and possibly old infarcts. Tele showing frequent PVCs and ectopic atrial foci. Suspect however this is nonischemic myocardial injury related to the respiratory failure. Echo as above. Continue ASA, Metoprolol and Lipitor. (6) Pneumonia involving left lung: Qualifiers: Lung location: unspecified part of lung Pneumonia type: due to unspecified organism Qualified Code(s): J18.9 - Pneumonia, unspecified organism Code(s): J18.9 - Pneumonia, unspecified organism Status: Acute Assessment and Plan: Chest x-ray shows moderate amount of left perihilar airspace disease either pneumonia versus edema. She was started on Rocephin and Zithromax. CTA of the chest shows diffuse ground-glass opacities throughout the left lung atypical pneumonia versus edema. COVID and influenza negative. Testing for other viral and atypical pathogens. Troponins are mildly elevated. BNP was 1760. She was given 1 dose of Lasix IV in the ED but UOP was not brisk. Echo showing increased right atrial pressure. Continue abx. Hypoxia is improving. Wean O2 as tolerated. Lasix IV. (7) HTN (hypertension), benign: Code(s): I10 - Essential (primary) hypertension Status: Acute
[2021-04-20] MEDS: guaiFENesin/CODEINE (*CRX) 200/20 MG 10 ML SYRUP PO ×3 (10:52→20:07)
[2021-04-20 11:57] LABS: Glucose Point of Care 134 mg/dl (65-105)
[2021-04-20] MEDS: guaiFENesin 12 HR 600 MG TABCR PO ×2 (13:39→20:07)
--- NOTE | 2021-04-20 14:51 | PC.NURSE ---
This patient, Ashley Norton, was transferred to [facility] on 04/20/21 at 1445. Personal belongings sent with patient. Report given to Prisca BELTRAN. Appropriate documentation sent with patient.
--- NOTE | 2021-04-20 14:57 | PC.NURSE ---
Pt transfer received from IMU. Patient oriented to the room.
[2021-04-20 16:16] LABS: Glucose Point of Care 215 mg/dl (65-105)
[2021-04-20] MEDS: INSULIN ASPART (*BKC) 100 UNITS/ML SUB-Q (16:21)
[2021-04-20] MEDS: METOPROLOL TARTRATE 25 MG TABLET PO (20:08)
[2021-04-20 21:46] LABS: Glucose Point of Care 196 mg/dl (65-105)
[2021-04-21] VITALS (24 sets, daily range): BP systolic 110–138; BP diastolic 43–56; PULSE 48–89; RESP 14–20; TEMP 36–36.4; O2SAT 84–98
[2021-04-21] MEDS: ALBUTEROL SULFATE NEB 2.5 MG/0.5 ML INH INHALATION ×5 (00:38→16:39)
[2021-04-21] MEDS: IPRATROPIUM BR 0.02% INH SOLN 0.5 MG/2.5 ML VIAL INHALATION ×5 (00:38→16:39)
[2021-04-21] MEDS: guaiFENesin/CODEINE (*CRX) 200/20 MG 10 ML SYRUP PO ×4 (00:54→16:11)
[2021-04-21 06:16] LABS: Basophils Percent Auto 0.2 % (0.2-1.2); Eosinophils Absolute Auto 0.1 K/mm3 (0-0.3); Eosinophils Percent Auto 1.2 % (0-4.4); Hematocrit 41.1 % (37.0-47.0); Hemoglobin 13.1 g/dL (12.0-15.0); Immature Granulocyte Absolute 0.08 K/mm3 (0.00-0.031); Immature Granulocyte Percent A 0.7 % (0-0.5); Lymphocytes Absolute Auto 2.88 K/mm3 (0.9-3.2); Lymphocytes Percent Auto 24.6 % (18.3-44.2); Mean Corpuscular HGB Conc 31.9 g/dl (32-36); Mean Corpuscular Hemoglobin 28.5 pg (26-34); Mean Corpuscular Volume 89.5 fl (80-100); Mean Platelet Volume 12.5 fl (7.4-10.4); Monocytes Absolute Auto 0.9 K/mm3 (0.1-0.6); Monocytes Percent Auto 7.3 % (2.6-8.5); Neutrophils Absolute Auto 7.7 K/mm3 (1.3-6.7); Platelet Count Result 236 k/mm3 (150-375); Red Blood Count 4.59 M/mm3 (4.2-5.4); Red Cell Distribution Width 14.2 % (11.5-14.5); White Blood Count 11.7 K/mm3 (4.5-10.0)
[2021-04-21] MEDS: FUROSEMIDE INJ 40 MG/4 ML VIAL 20 MG IV PUSH (06:17)
[2021-04-21 06:36] LABS: Alanine Aminotransferase 34 U/L (4-35); Albumin Level 3.8 g/dL (3.5-5.1); Alkaline Phosphatase 97 U/L (38-126); Anion Gap 6 mmol/L (8-16); Aspartate Amino Transferase 24 U/L (14-36); Bilirubin,Total 0.3 mg/dL (0.2-1.3); Blood Urea Nitrogen 18 mg/dL (7-17); Calcium 9.1 mg/dL (8.4-10.2); Carbon Dioxide 34 mmol/L (22-30); Chloride 99 mmol/L (98-107); Estimated CRCL calculation 63 ml/min; Estimated Glomerular Filt Rate > 60; Glucose 113 mg/dL (65-110); Potassium 3.6 mmol/L (3.4-5.0); Sodium 139 mmol/L (137-145)
[2021-04-21 07:52] LABS: Glucose Point of Care 99 mg/dl (65-105)
[2021-04-21] MEDS: ENOXAPARIN 40 MG/0.4 ML SYRINGE SUB-Q (08:15)
[2021-04-21] MEDS: METOPROLOL TARTRATE 25 MG TABLET PO (08:15)
[2021-04-21] MEDS: ASPIRIN 325 MG TABLET PO (08:15)
[2021-04-21] MEDS: guaiFENesin 12 HR 600 MG TABCR PO (08:15)
[2021-04-21] MEDS: AZITHROMYCIN 250 MG TABLET PO (08:15)
[2021-04-21] MEDS: predniSONE 10 MG TABLET 50 MG PO (08:16)
[2021-04-21] MEDS: ATORVASTATIN 40 MG TABLET PO (08:16)
--- NOTE | 2021-04-21 10:27 | PM.PNPUL ---
Progress Note: A&P Assessment and Plan (1) Pneumonia involving left lung: Qualifiers: Lung location: unspecified part of lung Pneumonia type: due to unspecified organism Qualified Code(s): J18.9 - Pneumonia, unspecified organism Code(s): J18.9 - Pneumonia, unspecified organism Status: Acute Assessment and Plan: 04/19 Patient presents with shortness of breath, increased cough, increased clear phlegm, chills, leukocytosis, lactic acidosis with unilateral left-sided ground-glass infiltrates. COVID RT PCR test is negative. Influenza swab is negative. Additional testing for other respiratory viral pathogens, mycoplasma, chlamydia, and Bordetella are pending. Blood cultures are negative. Patient was treated with ceftriaxone and azithromycin and after 36 hours she states she has 75-80% better. I agree with current antibiotic regimen. I will check a chest x-ray today. Patient with a long history of reactive airways disease and she may have asthma and/or COPD given her smoking history. Patient is currently on Solu-Medrol 40 q.12 hours, albuterol 2.5 q.6 nebs, ipratropium 0.5 q.6 nebs. She has no wheezing at this time and I will switch her to prednisone 50 today. continue albuterol and ipratropium nebulizers. eventually she will need outpatient PFTs to assess her lung function, bronchodilator response, lung volumes and DLCO. 04/20 Patient clinically unchanged from yesterday, white blood cell count improved to 17.3, chest x-ray from yesterday with slight improvement on the left. Patient with a few end expiratory wheezes today and I will continue prednisone 50 today and increased her albuterol and ipratropium nebulizers to q.4 hours standing. Disccontinue trelegy inhaler for now As she is on maximal beta agonists and muscarinic antagonist and oral prednisone. in my opinion she is not ready for discharge today and will re-evaluate tomorrow. 04/21 Patient continues to slowly improve and states she is 82% back to her baseline. She is able to walk in the room at a slow pace. She still states she has a cough but it is improved no sputum. White blood cell count 11.7. Fifth dose azithro given this morning. On 3 L nasal cannula sats 93%. Patient is suitable for discharge home from a pulmonary perspective on these pulmonary medications: Cefdinir 300 mg PO Q 12 hours X 5 days Levaquin 750 mg PO Q day X 5 days Prednisone 50 mg PO Q day X 5 days Trelegy 200/62.5/25 at 1 puff Q day Rescue albuterol inhaler at 2 puffs q.4 hours p.r.n. shortness of breath and wheezing Guaifenesin ER 600 mg PO Q 12 h Guaifenesin/codeine syrup 10 mg PO Q 4 H PRNfenisin Oxygen per formal O2 home assessment prior to discharge ( I have ordered this) Oxygen at night at same level as with ambulation Follow up in pulmonary clinic in 2 weeks, I gave her our business card and informed our energy scheduler. Discussed with Dr. Starkey. (2) Lung mass: Code(s): R91.8 - Other nonspecific abnormal finding of lung field Status: Acute Assessment and Plan: 04/[address] angiogram of the chest 04/18 that showed no pulmonary embolism, diffuse ground-glass infiltrates of the left lung, right hilar mass with narrowing of the right upper lobe bronchus, mass effect on the right pulmonary artery, narrowing of the bronchus intermedius and narrowing of the right middle lobe with consolidation in the lateral segment of the right middle lobe. she had a CT scan of the chest on 09/01/2017 with calcified right lung nodules, calcified right hilar and mediastinal lymph nodes consistent with OG D, mosaic attenuation, peripheral reticular opacities and ground-glass opacities in the lung left worse than right, in numeral nodule superior segment the right lower lobe and calcifications in the spleen consistent with OG D. Patient with unintentional 10 lb weight loss in the last 4 months and differential diagnosis includes lung cancer and possible fibrosi
[2021-04-21 11:57] LABS: Glucose Point of Care 118 mg/dl (65-105)
--- NOTE | 2021-04-21 12:57 | PM.DS ---
DS: Admitting Diagnosis Discharge Date April 21, 2021 Admitting Diagnosis Pneumonia, right hilar mass, acute hypoxemic respiratory failure DS: Discharge Diagnosis Discharge Diagnosis (1) Sepsis: Qualifiers: Sepsis acute organ dysfunction status: unspecified Sepsis type: sepsis due to unspecified organism Qualified Code(s): A41.9 - Sepsis, unspecified organism Code(s): A41.9 - Sepsis, unspecified organism Status: Acute Assessment and Plan: Present on admission with tachypnea, tachycardia, lactic acidosis and leukocytosis. [place] related to her pneumonia. Respiratory failure also contributing to this because her pulse ox was 88% on 4L (By EMS, she was 78% on room air). Continue IV antibiotics. WBC trending down now and no fevers. Monitor white count. BCx NGTD. Home on Levaquin and Omnicef, Prednisone 50mg x 5 days (2) Acute respiratory failure: Code(s): J96.00 - Acute respiratory failure, unspecified whether with hypoxia or hypercapnia Status: Acute Assessment and Plan: Patient presents with a 4 days hx of worsening SOB. ABG 7.47/28/55 on 6L. CXR an CTA chest as mentioned below. Respiratory failure related to COPD exacerbation and PNA. She was treated with Lasix x1, neb treatments, steroids and abx. Echo has returned showing EF 70% with Grade I diastolic dysfunction, elevate RAP and borderline pHTN. Able to wean supplemental O2. She is feeling better since admission. Home oxygen evaluation 04/21 (3) Lung mass: Code(s): R91.8 - Other nonspecific abnormal finding of lung field Status: Acute Assessment and Plan: CTA chest performed due to +DDimer. CTA showing right hilar mass obstructing the right middle lobe bronchus and causing near complete collapse of the middle lobe. Finding is concerning for primary bronchogenic carcinoma. Pulmonary consult obtained. Plan for further evaluation once her current infection has cleared. (4) Acute exacerbation of chronic obstructive pulmonary disease: Code(s): J44.1 - Chronic obstructive pulmonary disease with (acute) exacerbation Status: Acute Assessment and Plan: Patient with acute respiratory failure felt related to COPD exacerbation and PNA. Continue steroids, neb treatments and abx. Smoking cessation is a must. Wheezing persistent but better today. Repeat CXR 04/19 showing slight improvement with left sided airspace opacities. (5) Elevated troponin: Code(s): R77.8 - Other specified abnormalities of plasma proteins Status: Acute Assessment and Plan: Trop peaked at 0.071. EKG showing borderline changes and with artifact. Repeat showing borderline ST-T wave changes and possibly old infarcts. Tele showing frequent PVCs and ectopic atrial foci. Suspect however this is nonischemic myocardial injury related to the respiratory failure. Echo as above. Continue ASA, Metoprolol and Lipitor. (6) Pneumonia involving left lung: Qualifiers: Lung location: unspecified part of lung Pneumonia type: due to unspecified organism Qualified Code(s): J18.9 - Pneumonia, unspecified organism Code(s): J18.9 - Pneumonia, unspecified organism Status: Acute Assessment and Plan: Chest x-ray shows moderate amount of left perihilar airspace disease either pneumonia versus edema. She was started on Rocephin and Zithromax. CTA of the chest shows diffuse ground-glass opacities throughout the left lung atypical pneumonia versus edema. COVID and influenza negative. Testing for other viral and atypical pathogens. Troponins are mildly elevated. BNP was 1760. She was given 1 dose of Lasix IV in the ED but UOP was not brisk. Echo showing increased right atrial pressure. Continue abx. (7) HTN (hypertension), benign: Code(s): I10 - Essential (primary) hypertension Status: Acute Assessment and Plan: Patient's blood pressure was reviewed on 04/20 Blood pres
--- NOTE | 2021-04-21 15:11 | PCRCNOTE ---
HOME O2 EVALUATION COMPLETE; PT. REQUIRES 1LPM AT REST AND 3LPM WITH ACTIVITY. R.N. NOTIFIED OF THE RESULTS. PT. STATES SHE HAS NO DME PREFERENCE.
--- NOTE | 2021-04-21 16:07 | PCRCNOTE ---
HOME OXYGEN SET UP WITH [facility]; SPOKE WITH [employer] ILEANA. Yayo TO CALL THE [employer]'S CELL PHONE WHEN PT. IS ABOUT TO LEAVE SO [facility] CAN MEET THEM AT THE HOUSE.
--- NOTE | 2021-04-21 17:06 | PCRCNOTE ---
FULL OXYGEN TANK FROM [facility] TAKEN TO PT.'S ROOM FOR TRANSPORT HOME. PT. AND R.N. BOTH INSTRUCTED ON USE.
[2021-04-23 18:53] LABS: Legionella pneumophila Ag Ur Not Detected (Not Detected)
[2021-04-26 08:01] LABS: Chlamydia pneumoniae by PCR Not Detected
== END 2021-04-21 15:30 | disposition home or self-care (01) | DRG 871 ==
LOC: ANHED 19:14 → ANHIMU 04-18 02:08 → ANH2MED 04-21 13:04 → ANHIMU 04-23 16:57
PROVIDERS: Admitting Provider Internal Medicine; Emergency Provider Emergency Medicine; PCP Family Medicine; Visit Provider Internal Medicine
DX: A41.9 Sepsis, unspecified organism (principal); J18.9 Pneumonia, unspecified organism; J96.21 Acute and chronic respiratory failure with hypoxia; J44.1 Chronic obstructive pulmonary disease with (acute) exacerbation; J44.0 Chronic obstructive pulmonary disease with (acute) lower respiratory infection; J45.21 Mild intermittent asthma with (acute) exacerbation; E11.3213 Type 2 diabetes mellitus with mild nonproliferative diabetic retinopathy with macular edema, bilateral; Z20.822 Contact with and (suspected) exposure to COVID-19; R91.8 Other nonspecific abnormal finding of lung field; R77.8 Other specified abnormalities of plasma proteins; I11.9 Hypertensive heart disease without heart failure; I25.10 Atherosclerotic heart disease of native coronary artery without angina pectoris; E78.2 Mixed hyperlipidemia; I25.2 Old myocardial infarction; Z28.21 Immunization not carried out because of patient refusal; Z79.82 Long term (current) use of aspirin; Z79.84 Long term (current) use of oral hypoglycemic drugs; Z79.899 Other long term (current) drug therapy; Z87.891 Personal history of nicotine dependence; Z98.42 Cataract extraction status, left eye; Z98.41 Cataract extraction status, right eye; Z96.1 Presence of intraocular lens
CPT/HCPCS: 36415; 36600; 71045; 71275; 80048; 80053; 82805; 82948; 83605; 83735; 83880; 84100; 84443; 84484; 85025; 85380; 85610; 85730; 86140; 87040; 87081; 87449; 87486; 87581; 87798; 87804; 93005; 93970; 94618; 94640; 97161; 97165; 99285; A9270; C8929; C9803; J0456; J0696; J1650; J1815; J1940; J2920; J3480; J7512; Q9957; Q9967; U0003; U0005

== ENCOUNTER 2021-04-30 01:08 | Day surgery (SDC) | payer MEDICARE, OTHER, SELFPAY ==
[2021-04-23 13:54] VITALS: BMI 26.4
[2021-04-30] VITALS (9 sets, daily range): BP systolic 108–140; BP diastolic 46–84; PULSE 71–95; RESP 17–27; TEMP 36.2–36.6; O2SAT 84–96; BMI 25.9
--- NOTE | ~2021-04-30 | XR_ITS ---
EXAMINATION: XR chest 1V portable DATE: 04/30/2021 13:37 INDICATION: Right hilar mass status post bronchoscopy. TECHNIQUE: A single frontal view of the chest was obtained. COMPARISON: Chest single view 04/19/2021, chest CT 04/18/2021 FINDINGS: There is volume loss of left hemithorax. Calcified right lung nodules are consistent with o ld granulomatous disease. There are airspace opacities in all left lung zones. No pleural effusion or pneumothorax. The heart size is normal. IMPRESSION: 1. Asymmetric volume loss of left hemithorax with persistent airspace opacities in all left lung zone s, consistent with pneumonia versus asymmetric pulmonary edema. Reviewed, dictated and finalized at location B. MENT MAKER HAND IMPRESSION: 1. Asymmetric volume loss of left hemithorax with persistent airspace opacities in all left lung zones, consistent with pneumonia versus asymmetric pulmonary edema.
--- NOTE | ~2021-04-30 | XR_ITS ---
EXAMINATION: XR chest 1V portable EXAM DATE: 04/30/2021 11:21 INDICATION: Pre-op . TECHNIQUE: Portable AP frontal chest x-ray was obtained. Comparison is made to prior examination from 04/19/2021. FINDINGS: Again there is moderate amount of ill-defined left-sided airspace disease. Please correlate this with the results of pulmonary CT from 04/18/2021. Most likely acute process such as atypical pn eumonia or asymmetric pulmonary edema. Right endobronchial mass on that exam are not well visualized on this study. There are right-sided granulomata. No pneumothorax or pleural effusion. Cardiomediasti nal silhouette is normal. There are bony degenerative changes. IMPRESSION: 1. Moderate amount of nonspecific left-sided groundglass airspace disease unchanged. 2. Right endobronchial mass poorly visualized. Reviewed, dictated and finalized at location A. RNAL MEDICINE PHYSICIAN ASSISTANT IMPRESSION: 1. Moderate amount of nonspecific left-sided groundglass airspace disease unch anged. 2. Right endobronchial mass poorly visualized.
--- NOTE | 2021-04-30 09:09 | WPDANESEPPF ---
Anes - Initial Pre Proc Eval Procedure: Operation Date: 04/30/21 13:00 Proposed Procedures p Flexible Bronchoscopy - Ryan Reed MD Date/Time: 04/30/21 09:09 Surgeon: Ryan Reed MD Pre Op Diagnosis: Lung Mass Patient Data Age: 65 Gender: F Height: 1.63 m Weight: 70 kg Allergies Allergy/AdvReac Type Severity Reaction Status Date / Time No Known Allergies Allergy Verified 04/23/21 14:07 Home Medications Medication Instructions Recorded Confirmed Type aspirin 325 mg tablet 325 mg PO DAILY 04/20/19 04/23/21 History fluticasone fur. 100 mcg-umeclid 1 inh INHALATION DAILY #60 ea 08/14/20 04/23/21 Rx 62.5 mcg-vilant 25 mcg inhalat.powder albuterol sulfate 90 mcg/actuation 1 - 2 inh INHALATION Q4H PRN #54 g 01/02/21 04/23/21 Rx aerosol inhaler atorvastatin 20 mg PO DAILY 04/18/21 04/23/21 History metoprolol tartrate 25 mg PO BID 04/18/21 04/23/21 History cefdinir 300 mg PO Q12H #10 cap 04/21/21 04/23/21 Rx guaifenesin [Mucus Relief ER] 600 mg PO Q12HR #30 tablet 04/21/21 04/23/21 Rx levofloxacin 750 mg PO DAILY #5 tablet 04/21/21 04/23/21 Rx metformin 1,000 mg PO USEASDIRECTD 04/23/21 04/23/21 History codeine 10 mg-guaifenesin 100 mg/5 10 ml PO Q4-6H #237 ml 04/27/21 Rx mL oral liquid prednisone 10 mg tablet 40 mg PO DAILY #20 tablet 04/27/21 Rx Other studies: EXAMINATION: CTA chest PE protocol DATE: 04/18/2021 14:25 INDICATION: Shortness of breath and hypoxia TECHNIQUE: Computed tomography angiography (CTA) of the chest was performed with 100 mL Omnipaque-350 intravenous contrast timed to evaluate the pulmonary arteries. Coronal maximum intensity projection 3D-reconstructions were created by the technologist. The dose-length product (DLP) was 478.21 mGy-cm. Automated exposure control and iterative reconstruction technique were employed. COMPARISON: 09/01/2017 FINDINGS: The pulmonary arteries are well-opacified. No pulmonary embolism is identified. There are diffuse groundglass opacities throughout the left lung. No pleural effusion or pneumothorax is identified. There is an approximately 2.9 x 2.5 cm right perihilar mass versus lymphadenopathy which obstructs the middle lobe bronchus causing near complete collapse of the right middle lobe. Cardiomegaly is noted. There is mild mediastinal lymphadenopathy. There is mild thoracic spondylosis. IMPRESSION: 1. No pulmonary embolus. 2. Diffuse groundglass opacities throughout the left lung which could reflect atypical pneumonia versus pulmonary edema. 3. Right hilar mass obstructing the right middle lobe bronchus and causing near complete collapse of the middle lobe. Finding is concerning for primary bronchogenic carcinoma. Bronchoscopy is recommended. Patient hx anesthesia problems: none Family hx anesthesia problems: none Results Review: All pre-operative results and documents have been reviewed as part of the pre-operative evaluation. [facility] Past Medical History Medical History (Updated 04/30/21 @ 09:15 by José Luis Clark MD) Acute exacerbation of chronic obstructive pulmonary disease Allergic rhinitis Atherosclerotic heart disease of [place] coronary artery without angina pectoris Cataract, bilateral COPD (chronic obstructive pulmonary disease) Elevated troponin H/O squamous cell carcinoma HTN (hypertension), benign Hypertensive heart disease without congestive heart failure Lung mass right hilar mass with right middle lobe collapse Mild intermittent asthma Mixed hyperlipidemia Mixed hyperlipidemia [place] (myocardial infarction) Overweight (BMI 25.0-29.9) Sepsis Tobacco abuse Type 2 diabetes mellitus with mild nonproliferative diabetic retinopathy with macular edema, bilateral Type 2 diabetes mellitus without complications Surgical History Surgical History (Updated 04/30/21 @ 09:15 by José Luis Clark MD) H/O percutaneous transluminal coronary angioplasty H/O sinus surgery H/O: hysterectomy History of cataract extractio
[2021-04-30] MEDS: LACTATED RINGERS 1,000 ML 150 ML IV CONT (11:41)
--- NOTE | 2021-04-30 12:06 | SUR.PREOP ---
Per Dr. Reed, an order was placed for an albuterol and atrovent nebulizer treatment before the bronchoscopy.
--- NOTE | 2021-04-30 12:14 | PM.IMHP ---
H&P: HPI History of Present Illness Date/Time: 04/30/21 12:14 Chief Complaint: outpatient bronchoscopy Narrative: Patient presents today for outpatient bronchoscopy for right hilar mass and right lower lung mass. 04/[address] angiogram of the chest 04/18 that showed no pulmonary embolism, diffuse ground-glass infiltrates of the left lung, right hilar mass with narrowing of the right upper lobe bronchus, mass effect on the right pulmonary artery, narrowing of the bronchus intermedius and narrowing of the right middle lobe with consolidation in the lateral segment of the right middle lobe. she had a CT scan of the chest on 09/01/2017 with calcified right lung nodules, calcified right hilar and mediastinal lymph nodes consistent with OG D, mosaic attenuation, peripheral reticular opacities and ground-glass opacities in the lung left worse than right, in numeral nodule superior segment the right lower lobe and calcifications in the spleen consistent with OG D. Patient with unintentional 10 lb weight loss in the last 4 months and differential diagnosis includes lung cancer and possible fibrosing mediastinitis. Once patient is stabilized from her acute infection and bronchospasm she will require an outpatient bronchoscopy with biopsy and possible crenshaw needle aspirate of right paratracheal/hilar mass. 04/27 Patient called today requesting more cough syrup patient. Patient has finished her Levaquin and cefdinir and over the last 2 days has developed worsening cough with some chest tightness and no wheezing. She denies fever chills. She is producing minimal phlegm that is described as clear to brown. At this time I will order prednisone 40 mg p.o. q.day for her to take starting today and through 04/30 when she is scheduled to have a bronchoscopy. I have also called in guaifenesin codeine cough syrup. I told the patient to call us back should she have any additional problems 04/30 Patient states she is improved on the 40 mg of prednisone a day. She is breathing better. She still has cough with clear phlegm but this has improved. She denies fever, chills, rigors, hemoptysis. I discussed risks and benefits of the procedure and she is willing to proceed. Review of Systems Review of Systems: All systems reviewed & are unremarkable except as noted in HPI and below Eyes: Eyes: Reports no additional eye complaints ENT: Reports system reviewed and no additional complaints, except as documented and Reports sinus pressure Cardiovascular: Cardiovascular: Reports no additional cardiovascular complaints Respiratory: Respiratory: Reports no additional respiratory complaints Gastrointestinal: Gastrointestinal: Reports no additional gastrointestinal complaints Musculoskeletal: Musculoskeletal: Reports no additional musculoskeletal complaints Integumentary/Breasts: Skin/Breast: Reports system reviewed and no additional complaints, except as docu Neurologic: Reports system reviewed and no additional complaints, except as documented Psychiatric: Psychiatric: Reports no additional psychiatric complaints Endocrine: Endocrine: Reports no additional endocrine complaints [facility] Past Medical History Medical History (Updated 04/30/21 @ 09:15 by José Luis Clark MD) Acute exacerbation of chronic obstructive pulmonary disease Allergic rhinitis Atherosclerotic heart disease of [place] coronary artery without angina pectoris Cataract, bilateral COPD (chronic obstructive pulmonary disease) Elevated troponin H/O squamous cell carcinoma HTN (hypertension), benign Hypertensive heart disease without congestive heart failure Lung mass right hilar mass with right middle lobe collapse Mild intermittent asthma Mixed hyperlipidemia Mixed hyperlipidemia [place] (myocardial infarction) Overweight (BMI 25.0-29.9) Sepsis Tobacco abuse Type 2 diabetes mellitus with mild nonproliferative diabetic retinopathy with macular edema, bilateral Type 2 diabete
[2021-04-30] MEDS: ALBUTEROL SULFATE NEB 2.5 MG/0.5 ML INH INHALATION (12:15)
[2021-04-30] MEDS: IPRATROPIUM BR 0.02% INH SOLN 0.5 MG/2.5 ML VIAL INHALATION (12:15)
--- NOTE | 2021-04-30 13:20 | SUR.OPER ---
1300- 4CC OF 2% LIDOCAINE GIVEN. 10CC NS GIVEN.
== END 2021-04-30 14:48 | disposition home or self-care (01) ==
PROVIDERS: PCP Family Medicine; Visit Provider Internal Medicine Pulmonary Disease
PROC: 0BJ08ZZ Inspection of Tracheobronchial Tree, Via Natural or Artificial Opening Endoscopic (ICD-10-PCS; CPT 31622; principal; 2021-04-30 13:00)
DX: C34.01 Malignant neoplasm of right main bronchus (principal); R09.02 Hypoxemia; R59.0 Localized enlarged lymph nodes; J44.9 Chronic obstructive pulmonary disease, unspecified; I25.10 Atherosclerotic heart disease of native coronary artery without angina pectoris; I11.0 Hypertensive heart disease with heart failure; I50.9 Heart failure, unspecified; E78.5 Hyperlipidemia, unspecified; J45.20 Mild intermittent asthma, uncomplicated; I25.2 Old myocardial infarction; E78.2 Mixed hyperlipidemia; E11.3213 Type 2 diabetes mellitus with mild nonproliferative diabetic retinopathy with macular edema, bilateral; Z95.5 Presence of coronary angioplasty implant and graft; Z87.891 Personal history of nicotine dependence; Z79.82 Long term (current) use of aspirin; Z79.51 Long term (current) use of inhaled steroids; Z79.84 Long term (current) use of oral hypoglycemic drugs
CPT/HCPCS: 31625; 31623; 71045; 81210; 81235; 81275; 81276; 87070; 87205; 88104; 88108; 88160; 88271; 88274; 88305; 88360; 88381; 94640; J1100; J2405; J2704; J7040; J7120

== ENCOUNTER 2021-05-25 07:45 | Outpatient (CLI) | payer MEDICARE, OTHER, SELFPAY ==
--- NOTE | ~2021-05-25 | CT_ITS ---
EXAMINATION: CT abdomen pelvis w con INDICATION: Malignant neoplasm of the lung. TECHNIQUE: Computed tomographic images of the abdomen and pelvis were obtained after the administrati on of 100 cc of Omnipaque 350 intravenous contrast. The dose-length product (DLP) was 505.98 mGy-cm. Automated exposure control and iterative reconstruction technique were employed. COMPARISON: Chest CT, 04/18/2021 FINDINGS: There are persistent asymmetric opacities of the left lung which demonstrate slight improve ment. The heart size is normal. Punctate calcifications in an otherwise normal spleen likely represen t healed granulomatous disease. The liver, pancreas, gallbladder, and adrenal glands are normal. Nono bstructing stones of the left kidney measure up to 10 mm. The right kidney is unremarkable. No pathol ogically enlarged abdominal or pelvic lymph nodes are identified. There is no free intraperitoneal ga s or evidence of bowel obstruction. There is calcified atherosclerosis of the aorta and many of the o ther arteries. There is mild lumbar spondylosis. IMPRESSION: 1. Nonobstructing left nephrolithiasis. 2. Resolving pneumonia. Reviewed, dictated and finalized at location A. ER MACHINE OPERATOR
[2021-05-25 08:26] LABS: Estimated Glomerular Filt Rate > 60
== END 2021-05-25 07:46 | disposition home or self-care (01) ==
LOC: ANHIMG 07:50
PROVIDERS: PCP Family Medicine; Visit Provider Internal Medicine Hematology & Oncology
DX: C34.90 Malignant neoplasm of unspecified part of unspecified bronchus or lung (principal); N20.0 Calculus of kidney
CPT/HCPCS: 74177; Q9967

== ENCOUNTER 2021-06-05 12:32 | Outpatient (CLI) | payer MEDICARE, OTHER, SELFPAY ==
[2021-06-05 13:15] VITALS: PULSE 74; O2SAT 94
[2021-06-05 13:20] VITALS: PULSE 95; O2SAT 90
[2021-06-05 13:30] VITALS: PULSE 80; O2SAT 94
--- NOTE | 2021-06-05 14:22 | HOMEO2EVAL ---
Evaluation was performed at [facility] Home Oxygen Evaluation RC: Home Oxygen (O2) Evaluation Start: 06/05/21 14:20 Freq: Status: Active Protocol: RPE Activity Type Activity Date Activity User E-Sign Co-Sign Detail Recorded Client Recorded Date Recorded By Document 06/05/21 13:15 SHRUTHI [id number] 06/05/21 14:22 SHRUTHI Document 06/05/21 13:20 SHRUTHI [id number] 06/05/21 14:22 SHRUTHI Document 06/05/21 13:30 SHRUTHI [id number] 06/05/21 14:22 SHRUTHI 06/05/21 06/05/21 06/05/21 13:15 13:20 13:30 Home O2 Evaluation Test Phase Resting Exercise Resting Oxygen Delivery Room Air Room Air Room Air Pulse Oximetry (90-100 %) 94 90 94 Pulse Rate (60-100 beats/min) 74 95 80 Ambulation Distance (feet) 600 Home Oxygen Evaluation Comments No home o2 needed at this time. Treatment Charges O2 Evaluation - Outpatient
--- NOTE | 2021-06-05 14:22 | PCRCNOTE ---
Home O2 eval completed and faxed to office staff
--- NOTE | 2021-06-06 12:45 | P.PCNPFT_ITS ---
PFT Procedure Performed PFT Procedure Performed Plethysmography (Lung Vol) Diffusing Cap (DLCO) Flow Vol Loop Spirometry w/o Bronchodil PFT Interpretation This is a pulmonary function test with spirometry, plethysmography and diffusing capacity. The test was performed and results interpreted in accordance with the 2019 and 2005 ATS/ERS Task Force guidelines respectively using the Global Lung Function Initiative-2012 reference equations. Patient demonstrated good effort and cooperation. Reproducibility criteria were met. The quality of the spirometry maneuver was Grade A. Of note the patient has used her albuterol 2 hours prior to testing and therefore post bronchodilator spirometry was not performed. Only 1 acceptable DLCO trial was performed. Findings: Spirometry: The contour the inspiratory and expiratory flow tracing are normal. The FVC is 1.84 L, 63% predicted. The FEV1 is 1.52 L, 67% predicted. The FEV1: FVC ratio is 83%. Plethysmography: The total lung capacity is 4.46 L, 88% predicted. Functional residual capacity is 3.35 L, 116% predicted. The residual volume is 2.53 L, 117% predicted. Diffusing capacity: The absolute diffusion capacity is 7.6, 37% predicted. The diffusing capacity corrected for alveolar volume is 3.47, 80% predicted. In comparison to previous pulmonary function test on 08/10/2020 the pre bronchodilator FVC has decreased from 2.42 L to 1.84 L. The pre bronchodilator FEV1 is unchanged from 1.72 L to 1.52 L. the total lung capacity has decreased from 8.49 L to 4.46 L. The functional residual capacity is decreased from 7.17 L to 3.35 L. The residual volume has decreased from 6.08 L to 2.53 L. The absolute diffusion capacity is decreased from 11.9 to 7.6. The diffusing capacity corrected for alveolar volume is unchanged from 3.66 to 3.47 Impression: The spirometry is normal without evidence of an obstructive abnormality. The lung volumes are normal without evidence of and restrictive abnormality. The FVC and FEV1 are moderately decreased without an obstructive or restrictive abnormality. This is an abnormal but nonspecific finding. There is no significant improvement after inhaling a single dose of albuterol. The absolute diffusing capacity is severely decreased and normalizes when corrected for alveolar volume. when compared to prior pulmonary function test on 08/10/2020 there has been a greater than anticipated time dependent decrease in FVC, total lung capacity, functional residual capacity, residual volume and abs olute diffusing capacity with no change in the pre bronchodilator FEV1 and diffusing capacity corrected for alveolar volume. Clinical correlation is recommended. There are no prior studies for comparison
== END 2021-06-05 12:33 | disposition home or self-care (01) ==
LOC: ANHPFT 12:35
PROVIDERS: PCP Family Medicine; Visit Provider Internal Medicine Pulmonary Disease
DX: J96.00 Acute respiratory failure, unspecified whether with hypoxia or hypercapnia (principal); J44.9 Chronic obstructive pulmonary disease, unspecified
CPT/HCPCS: 94375; 94618; 94726; 94729

== ENCOUNTER 2021-08-07 09:15 | Outpatient (CLI) | payer MEDICARE, OTHER, SELFPAY ==
--- NOTE | ~2021-08-07 | PE_ITS ---
EXAMINATION: PET skull to mid thigh DATE: 08/07/2021 11:28 INDICATION: Malignant neoplasm of lung. TECHNIQUE: Blood glucose level was 144 mg/dL. 10.057 mCi of 18-fluorodeoxyglucose (18-FDG) was admini stered i.v. Low dose computed tomography (CT) images were acquired from the base of the brain to the proximal thighs for attenuation correction and anatomic localization. Automated exposure control was employed. Dose-length product (DLP) was 818 mGy-cm. Positron emission tomography (PET) images were ac quired in the same distribution. COMPARISON: CT abdomen and pelvis 05/25/2021, chest CT 04/18/2021 FINDINGS: Head/neck: There is increased activity in the pharynx and oral cavity and glottis without abnormal CT correlate, likely physiologic. There are no pathologically enlarged lymph nodes. Chest: There is mild emphysema. There are mild groundglass opacities in left upper lobe and left lowe r lobe. Calcified right lung nodules and calcified right hilar and mediastinal lymph nodes are consis tent with old granulomatous disease. There is a right hilar mass with maximum SUV of 5.4. There are a djacent airspace opacities in all right lung lobes with a perihilar predominance with volume loss, li teo predominantly atelectasis. The atelectasis obscures the mass size. The area of increased activit y measures approximately 3.6 cm. There is a 1.6 x 2.5 cm right paratracheal lymph node with increased activity, increased from 1.4 x 2.2 cm on 04/18/2021. Abdomen/pelvis/proximal thighs: The liver, spleen, gallbladder, pancreas, adrenal glands, and right k idney are normal. There are stones in left kidney obscured by motion artifact measuring up to approxi mately 11 mm. There are no dilated loops of bowel. There is a small sliding hiatal hernia. There are no pathologically enlarged lymph nodes. There is no free intraperitoneal fluid. There is no osseous m alignancy. IMPRESSION: 1. 3.6 cm right hilar mass, increased from 2.9 cm on 04/18/2021, consistent with squamous cell carcin elba. 2. Enlarged right paratracheal lymph node with increased activity, consistent with metastatic disease . 3. Mild groundglass opacities in left lung, consistent with atelectasis versus pneumonia versus mild pulmonary edema. Reviewed, dictated and finalized at location A. NQUENCY PREVENTION OFFICER IMPRESSION: 1. 3.6 cm right hilar mass, increased from 2.9 cm on 04/18/2021, consistent wit h squamous cell carcinoma. 2. Enlarged right paratracheal lymph node with increased activity, consistent w ith metastatic disease. 3. Mild groundglass opacities in left lung, consistent with atelectasis versus pneumonia versus mild pulmonary edema.
[2021-08-07 09:42] LABS: Glucose Point of Care 144 mg/dl (65-105)
== END 2021-08-07 09:16 | disposition home or self-care (01) ==
PROVIDERS: PCP Family Medicine; Visit Provider Internal Medicine Hematology & Oncology
DX: Z03.89 Encounter for observation for other suspected diseases and conditions ruled out (principal); C34.01 Malignant neoplasm of right main bronchus; R59.0 Localized enlarged lymph nodes
CPT/HCPCS: 77290; 77334; 77470; 78815; A9552

== ENCOUNTER 2021-08-08 00:21 | Day surgery (SDC) | payer MEDICARE, OTHER, SELFPAY ==
[2021-08-06 11:15] VITALS: BMI 25.8
--- NOTE | 2021-08-06 11:22 | PC.NURSE ---
Report to the Outpatient Waiting Room, entrance under the green pavilion located off [facility], at time _1100_ on date _08/08/21_. OR Time: _1PM_. - You and your visitor will be asked a series of questions to screen for COVID 19 for your protection. - A mask is required within the hospital. Preoperative COVID Testing Requirements: NONE No COVID Test needed if: (proof is required; if not received patient will have Rapid Test prior to entry) - Patient has received COVID Vaccine at least 14 days prior to procedure date or - Patient has positive COVID test result within last 90 days of surgery date. COVID Test needed if above criteria is not met If not COVID vaccinated a COVID test must be conducted within 72 hours of surgery and patient is asked to isolate self from time of testing until procedure. You will go to the [facility] for your COVID testing. The [facility] Testing site is located at the corner of [address] [facility]. You will only be called if COVID results are positive and your surgeon may reschedule your elective surgery date. Patients may have clear liquids (water, carbonated beverages, clear teas, apple juice) until 3 hours prior to surgery with a maximum of 20 ounces. - No food from midnight until time of surgery - Infants may have breast milk until 4 hours before surgery, formula 6 hours prior to surgery. - Children will be allowed to drink immediately following surgery. If applicable, please bring a bottle or sippy cup to assist with drinking. Juice, water, soda, and popsicles are readily available. For infants on formula, please bring formula the day of surgery. Pacifiers are allowed. Take the following medications with a SIP of water the morning of surgery: _METOPROLOL, INHALERS__ Medications to discontinue per physician _ASPIRIN - PER DR. VALDIVIA'S INSTRUCTIONS (PT SATES I JUST STOPPED IT ALL TOGETHER)_ Date to take last dose Please no make-up, nail setswana, hairspray, perfume, deodorant, or body powder the day of surgery. No jewelry (including any body piercings) or valuables the day of surgery, leave them at home. Please take a shower or bath the night before, or the morning of, surgery with an antibacterial soap. Wear comfortable, loose fitting clothing. Children are encouraged to wear pajamas. - Jewelry must be removed prior to entering the operating room. Rings and piercings that are not removed may be cut off. - The hospital will not accept responsibility for valuables. - Please leave all valuables, including medications, at home the day of surgery. If you are going home after surgery, a licensed yard truck driver must drive you home. - NO public transportation without another adult. - We recommend that an adult stay with you for 24 hours following discharge. - We also recommend that you do not drive, make important decision, drink alcoholic beverages, or take any drugs that were not prescribed by your health care provider for at least 24 hours after your discharge time. For Pediatric surgeries, we recommend two adults accompany the child home (only one inside the building at this time). One visitor will be allowed to accompany the patient into the hospital. Patients visitor will be instructed to remain with patient at all times or leave the building. We will allow the visitor to come back to the postoperative area when patient is ready. Follow any additional instructions given to you from your surgeon. Telephone instructions given to ____PT and asked if any additional questions and then verbalized understanding. Patient advised to call surgeon office or pre surgery nurse liaison [phone] if any additional questions.
--- NOTE | ~2021-08-08 | XR_ITS ---
EXAMINATION: XR fl guide central line place INDICATION: Port-A-Cath insertion TECHNIQUE: A single intraoperative fluoroscopic image is submitted for review. Total fluoroscopic ambar e was 27.7 seconds. COMPARISON: None available FINDINGS: Fluoroscopic image demonstrates a left-sided catheter tip ending in the distal superior emily a cava. Please refer to procedure note for full details. IMPRESSION: 1. Left-sided catheter tip in the distal superior vena cava. Please refer to procedure note for full details. Reviewed, dictated and finalized at location D. ER IMPRESSION: 1. Left-sided catheter tip in the distal superior vena cava. Please refer to pr patsyre note for full details.
--- NOTE | ~2021-08-08 | XR_ITS ---
EXAMINATION: XR chest port-a-cath/central INDICATION: Port-A-Cath insertion, lung cancer TECHNIQUE: Portable AP chest at 1332 hours COMPARISON: 04/30/2021 FINDINGS: A left subclavian Port-A-Cath has been inserted which ends with its tip in the distal super ior vena cava. There is no pneumothorax. A small right pleural effusion is present. Right basilar air space opacities likely reflect passive atelectasis. There is increased opacification of the right per ihilar region, likely known malignancy. The heart size is normal. IMPRESSION: 1. Left subclavian Port-A-Cath ending in the distal superior vena cava. 2. Small right pleural effusion. Reviewed, dictated and finalized at location D. ERCIAL DRONE PILOT
--- NOTE | 2021-08-08 11:14 | WPDANESEPPF ---
Anes - Initial Pre Proc Eval Procedure: Operation Date: 08/08/21 13:00 Proposed Procedures p Insertion [place] Cath - Janessa Torres MD Date/Time: 08/08/21 11:14 Surgeon: Janessa Torres MD Pre Op Diagnosis: malignant neoplasm of lung Patient Data Age: 66 Gender: F Height: 1.63 m Weight: 68.3 kg Allergies Allergy/AdvReac Type Severity Reaction Status Date / Time No Known Allergies Allergy Verified 08/08/21 11:19 Home Medications Medication Instructions Recorded Confirmed Type aspirin 325 mg tablet 325 mg PO DAILY 04/20/19 08/08/21 History metoprolol tartrate 25 mg PO BID 04/18/21 08/08/21 History albuterol sulfate 90 mcg/actuation 1 inh INHALATION Q4H 05/22/21 08/08/21 History aerosol inhaler atorvastatin 40 mg tablet 40 mg PO DAILY 05/22/21 08/08/21 History fluticasone fur. 100 mcg-umeclid 1 inh INHALATION DAILY #60 ea 05/25/21 08/08/21 Rx 62.5 mcg-vilant 25 mcg inhalat.powder olmesartan 40 mg tablet 40 mg PO DAILY #90 tablet 07/02/21 08/08/21 Rx metformin 500 mg tablet,extended 1,000 mg PO DAILY #180 tablet 07/04/21 08/08/21 Rx release 24 hr Patient hx anesthesia problems: none Family hx anesthesia problems: none Results Review: All pre-operative results and documents have been reviewed as part of the pre-operative evaluation. [facility] Past Medical History Medical History Acute exacerbation of chronic obstructive pulmonary disease Allergic rhinitis Atherosclerotic heart disease of [place] coronary artery without angina pectoris Cataract, bilateral COPD (chronic obstructive pulmonary disease) Elevated troponin H/O squamous cell carcinoma HTN (hypertension), benign Hypertensive heart disease without congestive heart failure Lung mass right hilar mass with right middle lobe collapse Mild intermittent asthma Mixed hyperlipidemia Mixed hyperlipidemia [place] (myocardial infarction) Overweight (BMI 25.0-29.9) Sepsis Tobacco abuse Type 2 diabetes mellitus with mild nonproliferative diabetic retinopathy with macular edema, bilateral Type 2 diabetes mellitus without complications Surgical History Surgical History H/O percutaneous transluminal coronary angioplasty H/O sinus surgery H/O: hysterectomy History of cataract extraction with lens replacement History of coronary artery stent placement Family History Family History Sibling Hypertension Father Family history of coronary artery disease Social History Social History Smoking packs per day: 1 Smoking cigarettes per day: 20.0 Years smoked: 35 Smoking pack-years: 35.00 Smoking status: Former smoker Tobacco type: cigarettes Second hand tobacco smoke exposure: No Smoking end date: 04/17/21 Alcohol intake: former Alcohol use details: STATES EXTREMILY VERY RARELY TAKES A SIP NOW AND THEN Substance use: never Substance use type: does not use Living arrangements: with family Gender identity (if verbalized by the patient): Female Spiritual care concerns: No Anes - Eval Final PreProcedure Day of Procedure 08/08/21 11:14 Patient weight: overweight Heart: regular rate and rhythm Lungs: clear to auscultation and normal air movement Airway: Mallampati scale class II Neurological: alert and oriented Last oral intake: >/= 8 hours ASA classification: III Emergent: no Anesthetic plan: proceed Anesthesia type and monitoring: general GIVS and standard monitoring Results Review: All pre-operative results and documents have been reviewed as part of the pre-operative evaluation. Informed Consent: The patient's anesthetic plan and its attendant risks and benefits were discussed with the patient/family/POA. Questions were solicited and answers provided to the satisfaction of the patient/family/POA.
--- NOTE | 2021-08-08 11:26 | SUR.PREOP ---
DR VALDIVIA IN ROOM SPEAKING TO PT AND SPOUSE
[2021-08-08 11:27] VITALS: BP 128/83; PULSE 64; RESP 20; TEMP 36.2; O2SAT 97; BMI 26.9
[2021-08-08] MEDS: LACTATED RINGERS 1,000 ML 30 ML IV CONT (11:49)
[2021-08-08] MEDS: KETOROLAC 15 MG/ML VIAL (*BKC) IV PUSH (11:49)
--- NOTE | 2021-08-08 11:49 | PM.IMHP ---
H&P: HPI History of Present Illness Date/Time: 08/08/21 11:49 66 y/o c multiple med issues presenting c R lung cancer. Pt is going to undergo chemoradiation. Pt here for VAD for chemo access. Pt denies any previous central venous catheterization. Chief Complaint: R SCC lung cancer Review of Systems Review of Systems: All systems reviewed & are unremarkable except as noted in HPI and below PMFSH Past Medical History Medical History Acute exacerbation of chronic obstructive pulmonary disease Allergic rhinitis Atherosclerotic heart disease of [place] coronary artery without angina pectoris Cataract, bilateral COPD (chronic obstructive pulmonary disease) Elevated troponin H/O squamous cell carcinoma HTN (hypertension), benign Hypertensive heart disease without congestive heart failure Lung mass right hilar mass with right middle lobe collapse Mild intermittent asthma Mixed hyperlipidemia Mixed hyperlipidemia [place] (myocardial infarction) Overweight (BMI 25.0-29.9) Sepsis Tobacco abuse Type 2 diabetes mellitus with mild nonproliferative diabetic retinopathy with macular edema, bilateral Type 2 diabetes mellitus without complications Surgical History Surgical History H/O percutaneous transluminal coronary angioplasty H/O sinus surgery H/O: hysterectomy History of cataract extraction with lens replacement History of coronary artery stent placement Family History Family History Sibling Hypertension Father Family history of coronary artery disease Social History Social History Smoking packs per day: 1 Smoking cigarettes per day: 20.0 Years smoked: 35 Smoking pack-years: 35.00 Smoking status: Former smoker Tobacco type: cigarettes Second hand tobacco smoke exposure: No Smoking end date: 04/17/21 Alcohol intake: former Alcohol use details: STATES EXTREMILY VERY RARELY TAKES A SIP NOW AND THEN Substance use: never Substance use type: does not use Living arrangements: with family Gender identity (if verbalized by the patient): Female Spiritual care concerns: No Meds Home Medications and Allergies Home Medications Medication Instructions Recorded Confirmed Type aspirin 325 mg tablet 325 mg PO DAILY 04/20/19 08/08/21 History metoprolol tartrate 25 mg PO BID 04/18/21 08/08/21 History albuterol sulfate 90 mcg/actuation 1 inh INHALATION Q4H 05/22/21 08/08/21 History aerosol inhaler atorvastatin 40 mg tablet 40 mg PO DAILY 05/22/21 08/08/21 History fluticasone fur. 100 mcg-umeclid 1 inh INHALATION DAILY #60 ea 05/25/21 08/08/21 Rx 62.5 mcg-vilant 25 mcg inhalat.powder olmesartan 40 mg tablet 40 mg PO DAILY #90 tablet 07/02/21 08/08/21 Rx metformin 500 mg tablet,extended 1,000 mg PO DAILY #180 tablet 07/04/21 08/08/21 Rx release 24 hr Allergies Allergy/AdvReac Type Severity Reaction Status Date / Time No Known Allergies Allergy Verified 08/08/21 11:19 Vital Signs Vital Signs - 24 hr 08/08/21 11:27 Temperature 36.2 C L Pulse Rate 64 Respiratory Rate 20 Blood Pressure 128/83 Pulse Oximetry 97 Exam Const: General: cooperative and no acute distress Nutritional Appearance: overweight Orientation/consciousness: patient oriented x3 Limitations: no limitations Neck: Neck: normal visual inspection, full ROM and no lymphadenopathy Chest: Chest palpation & inspection: normal inspection of the chest Resp: Effort & Inspection: normal respiratory effort Auscultation: diminished lung sounds Cardio: Rate: regular rate Rhythm: regular rhythm GI: Inspection: normal to inspection GI Palp: Yes Soft to palpation and No Tenderness to palpation present (GI) Assessment and Plan Assessment and plan (1) Squamous cell carcinoma lung: Code(s
--- NOTE | 2021-08-08 11:51 | WPDHPUPDATE1 ---
History and Physical Update Update Date/Time: 08/08/21 11:51 History and Physical has been reviewed, including an updated exam of the patient. There are NO changes in the patient's condition. Risks, benefits, and alternatives have been discussed and questions answered. Patient agrees to proceed with procedure.
[2021-08-08 12:04] LABS: Basophils Absolute Auto 0.1 K/mm3 (0.0-0.1); Basophils Percent Auto 0.8 % (0.2-1.2); Eosinophils Absolute Auto 0.4 K/mm3 (0-0.3); Eosinophils Percent Auto 4.4 % (0-4.4); Hematocrit 42.1 % (37.0-47.0); Hemoglobin 13.5 g/dL (12.0-15.0); Immature Granulocyte Absolute 0.02 K/mm3 (0.00-0.031); Immature Granulocyte Percent A 0.2 % (0-0.5); Lymphocytes Absolute Auto 2.36 K/mm3 (0.9-3.2); Lymphocytes Percent Auto 26.2 % (18.3-44.2); Mean Corpuscular HGB Conc 32.1 g/dl (32-36); Mean Corpuscular Volume 87.3 fl (80-100); Mean Platelet Volume 11.9 fl (7.4-10.4); Monocytes Absolute Auto 0.6 K/mm3 (0.1-0.6); Monocytes Percent Auto 6.1 % (2.6-8.5); Neutrophils Absolute Auto 5.6 K/mm3 (1.3-6.7); Neutrophils Percent Auto 62.3 % (45.5-73.1); Platelet Count Result 222 k/mm3 (150-375); Red Blood Count 4.82 M/mm3 (4.2-5.4); Red Cell Distribution Width 14.5 % (11.5-14.5)
[2021-08-08 12:15] LABS: Anion Gap 11 mmol/L (8-16); Blood Urea Nitrogen 9 mg/dL (7-17); Calcium 9.6 mg/dL (8.4-10.2); Carbon Dioxide 27 mmol/L (22-30); Chloride 104 mmol/L (98-107); Estimated CRCL calculation 64 ml/min; Estimated Glomerular Filt Rate > 60; Glucose 126 mg/dL (65-110); Potassium 3.7 mmol/L (3.4-5.0); Sodium 142 mmol/L (137-145)
[2021-08-08 12:16] LABS: INR 1.1; Prothrombin Time 13.3 Seconds (11.1-14.7)
[2021-08-08 12:17] LABS: Partial Thromboplastin Time 34.3 SECONDS (22.3-36.8)
[2021-08-08] MEDS: ceFAZolin 2 GM/D5W 50 ML 2 GM/50 ML BAG IVPB (12:42)
[2021-08-08] MEDS: BUPIVACAINE/EPINEPHRINE 0.25% 50 ML VIAL 10 ML INFILTRATE (13:06)
[2021-08-08] MEDS: HEPARIN SODIUM, PORCINE 10,000 UNITS/10 ML VIAL 10000 UNITS IRRIGATION (13:07)
[2021-08-08] MEDS: HEPARIN SODIUM 5,000 UNITS/ML VIAL 5000 UNITS IRRIGATION (13:08)
[2021-08-08 13:18] VITALS: BP 145/78; PULSE 84; RESP 25; O2SAT 94
--- NOTE | 2021-08-08 13:21 | W.PM.PROC2 ---
Procedure Note - Detailed Date of Procedure 08/08/21 Pre-op Diagnosis malignant neoplasm of lung Post-op Diagnosis same Procedure Performed placement of left subclavian venous access device under fluoroscopic guidance Surgeon Janessa Torres MD Anesthesia MAC and local Indications 66-year-old female with right squamous cell lung cancer needing chemo access Findings first stick L SCV Description of Procedure Patient was brought into the operating room and placed in the supine position. After adequate induction of mac anesthesia, the patient was prepped and draped in normal sterile fashion. Time-out was then done to verify the patient's identity, as well as the procedure being performed. I began by making a small incision in the left chest, I then gained access into the left subclavian vein with an 18 gauge needle. I then placed the guidewire into the vein and confirmed placement via fluoroscopic guidance. I then locally anesthetized the area in the left chest. I then enlarged the incision around the guidewire including making a subcutaneous pocket inferiorly to allow placement of the port itself. I then placed a dilating sheath over the guidewire into the left subclavian vein via sterile Seldinger technique. This was once again done and confirmed via fluoroscopic guidance. I then removed the dilator and the guidewire, now just leaving the sheath in the vein. I then fed the previously flushed catheter into the left subclavian vein under fluoroscopic guidance. At approximately 20 cm, the catheter was noted to be near the atrial caval junction. I then peeled away the sheath, now just leaving the catheter in the vein. I then was able to easily draw and flush from the catheter. The catheter was cut to fit and attached to the port itself. The port was placed into the previously made subcutaneous pocket and sutured in with 0 Ethibond suture. Final fluoroscopic view showed the termination of the catheter at the atrial caval junction with a nice smooth curvature back to the port itself. I was able to gain access to the port with a Najera needle and was able to easily draw and flush from the port. I then flushed 4 cc of a final heparin flush into the port. The incision was closed with 3 0 Vicryl suture in the subcutaneous tissue and the skin was closed with 4 O Monocryl subcuticular suture. Dermabond was then placed on wound. The patient tolerated the procedure well and will be sent to the recovery room in stable condition. Implants L SCV VAD Estimated Blood Loss 10 Drains No Packing No Pathology none sent Complications No immediate complications Condition stable Disposition PACU
[2021-08-08 13:45] VITALS: BP 102/45; PULSE 81; RESP 22; O2SAT 96
[2021-08-08 13:58] LABS: Glucose Point of Care 120 mg/dl (65-105)
[2021-08-08 14:15] VITALS: BP 106/57; PULSE 64; RESP 22; O2SAT 94
== END 2021-08-08 14:30 | disposition home or self-care (01) ==
PROVIDERS: PCP Family Medicine; Visit Provider Surgery
PROC: (CPT 36561; principal; 2021-08-08 13:00)
DX: C34.91 Malignant neoplasm of unspecified part of right bronchus or lung (principal); I25.10 Atherosclerotic heart disease of native coronary artery without angina pectoris; J44.9 Chronic obstructive pulmonary disease, unspecified; I11.9 Hypertensive heart disease without heart failure; J45.20 Mild intermittent asthma, uncomplicated; E78.2 Mixed hyperlipidemia; I25.2 Old myocardial infarction; E11.3293 Type 2 diabetes mellitus with mild nonproliferative diabetic retinopathy without macular edema, bilateral; Z79.82 Long term (current) use of aspirin; Z79.51 Long term (current) use of inhaled steroids; Z79.84 Long term (current) use of oral hypoglycemic drugs; Z95.5 Presence of coronary angioplasty implant and graft; Z87.891 Personal history of nicotine dependence
CPT/HCPCS: 36561; 36415; 77001; 80048; 82948; 85025; 85610; 85730; C1788; J0690; J1644; J1885; J2704; J3010; J7030; J7120

== ENCOUNTER 2021-10-03 00:47 | Day surgery (SDC) | payer MEDICARE, OTHER, SELFPAY ==
[2021-09-20 14:11] VITALS: BMI 22.4
--- NOTE | 2021-09-26 10:55 | PC.NURSE ---
ORDERS RECEIVED 09/24/[address] VEGA'S OFFICE THAT IT IS OKAY TO ACCESS PATIENTS YULI CATH FOR ANESTHESIA AND FLUIDS FOR PROCEDURE ON 10/03/2021
--- NOTE | 2021-10-03 07:10 | WPDGICN ---
Assessment and Plan Assessment and plan (1) Nausea and vomiting: Code(s): R11.2 - Nausea with vomiting, unspecified Status: Acute Assessment and Plan: EGD with possible biopsy or dilatation or cautery. GI Consult Note Consult date/time: 10/03/21 07:10 HPI: Ashley Norton is a 66 year old female Who was diagnosed with lung cancer about 4 months ago. She has been receiving chemotherapy. She has had a great deal difficulty with vomiting. . She can eat a meal without difficulty and then she may vomit some time later bringing up a large portion of what she had eaten. Other times the food stays down. She does not have abdominal pain she has no significant nausea as long she takes her Zofran tablets. She has had no weight loss except for the weight she lost when she was 1st diagnosed about 4 months ago, but now her weight has been stable. Review of Systems Review of Systems: All systems reviewed & are unremarkable except as noted in HPI and below PMFSH Past Medical History Medical History Acute exacerbation of chronic obstructive pulmonary disease Allergic rhinitis Atherosclerotic heart disease of [place] coronary artery without angina pectoris Cataract, bilateral COPD (chronic obstructive pulmonary disease) Elevated troponin H/O squamous cell carcinoma Hiatal hernia HTN (hypertension), benign Hypertensive heart disease without congestive heart failure Lung mass right hilar mass with right middle lobe collapse Mild intermittent asthma Mixed hyperlipidemia Mixed hyperlipidemia [place] (myocardial infarction) Overweight (BMI 25.0-29.9) Sepsis Tobacco abuse Type 2 diabetes mellitus with mild nonproliferative diabetic retinopathy with macular edema, bilateral Type 2 diabetes mellitus without complications Surgical History Surgical History H/O percutaneous transluminal coronary angioplasty H/O sinus surgery H/O: hysterectomy History of cataract extraction with lens replacement History of coronary artery stent placement Family History Family History Sibling Hypertension Father Family history of coronary artery disease Social History Social History Smoking packs per day: 1 Smoking cigarettes per day: 20.0 Years smoked: 35 Smoking pack-years: 35.00 Smoking status: Former smoker Tobacco type: cigarettes Second hand tobacco smoke exposure: No Smoking end date: 04/17/21 Alcohol intake: former Alcohol use details: STATES EXTREMILY VERY RARELY TAKES A SIP NOW AND THEN Substance use: never Substance use type: does not use Living arrangements: with family Gender identity (if verbalized by the patient): Female Spiritual care concerns: No Meds Home Medications and Allergies Home Medications Medication Instructions Recorded Confirmed Type aspirin 325 mg tablet 325 mg PO DAILY 04/20/19 10/01/21 History metoprolol tartrate 25 mg PO BID 04/18/21 10/01/21 History albuterol sulfate 90 mcg/actuation 2 inh INHALATION Q4H PRN 05/22/21 10/01/21 History aerosol inhaler atorvastatin 40 mg tablet 40 mg PO DAILY 05/22/21 10/01/21 History fluticasone fur. 100 mcg-umeclid 1 inh INHALATION DAILY #60 ea 05/25/21 10/01/21 Rx 62.5 mcg-vilant 25 mcg inhalat.powder ondansetron 8 mg PO Q8H PRN 08/28/21 10/01/21 History omeprazole 40 mg capsule,delayed 40 mg PO DAILY #30 cap 08/29/21 10/01/21 Rx release benzonatate 100 mg PO TID PRN #60 cap 09/10/21 10/01/21 Rx Magic Mouthwash (Dr. Thornton) See Rx Instructions .ROUTE 09/24/21 10/01/21 Rx .COMPLEX PRN #360 ml potassium 10 mg PO BID 09/24/21 10/01/21 History metformin 500 mg tablet,extended 1,000 mg PO DAILY #180 tablet 10/02/21 Rx release 24 hr Allergies Allergy/AdvReac Type Severity Reaction Statu
[2021-10-03 07:22] VITALS: BP 115/54; PULSE 73; RESP 18; TEMP 36.2; O2SAT 100
[2021-10-03 08:01] LABS: Glucose Point of Care 108 mg/dl (65-105)
--- NOTE | 2021-10-03 08:06 | WPDANESEPPF ---
Anes - Initial Pre Proc Eval Procedure: Operation Date: 10/03/21 08:30 Proposed Procedures p Esophagogastroduodenoscopy - Gianfranco Gillis MD Date/Time: 10/03/21 08:06 Surgeon: Gianfranco Gillis MD Pre Op Diagnosis: vomiting Patient Data Age: 66 Gender: F Height: 1.63 m Weight: 68.4 kg Last Vital Signs Temp 97.1 F L 10/03/21 07:22 Pulse 73 10/03/21 07:22 Resp 18 10/03/21 07:22 BP 115/54 L 10/03/21 07:22 Pulse Ox 100 10/03/21 07:22 Allergies Allergy/AdvReac Type Severity Reaction Status Date / Time No Known Allergies Allergy Verified 10/03/21 07:20 Home Medications Medication Instructions Recorded Confirmed Type aspirin 325 mg tablet 325 mg PO DAILY 04/20/19 10/01/21 History metoprolol tartrate 25 mg PO BID 04/18/21 10/01/21 History albuterol sulfate 90 mcg/actuation 2 inh INHALATION Q4H PRN 05/22/21 10/03/21 History aerosol inhaler atorvastatin 40 mg tablet 40 mg PO DAILY 05/22/21 10/01/21 History fluticasone fur. 100 mcg-umeclid 1 inh INHALATION DAILY #60 ea 05/25/21 10/01/21 Rx 62.5 mcg-vilant 25 mcg inhalat.powder ondansetron 8 mg PO Q8H PRN 08/28/21 10/01/21 History omeprazole 40 mg capsule,delayed 40 mg PO DAILY #30 cap 08/29/21 10/01/21 Rx release benzonatate 100 mg PO TID PRN #60 cap 09/10/21 10/01/21 Rx Magic Mouthwash (Dr. Thornton) See Rx Instructions .ROUTE 09/24/21 10/01/21 Rx .COMPLEX PRN #360 ml potassium 10 mg PO BID 09/24/21 10/01/21 History metformin 500 mg tablet,extended 1,000 mg PO DAILY #180 tablet 10/02/21 10/03/21 Rx release 24 hr Laboratory Tests 10/03/21 07:56 POC Capillary Glucose 108 mg/dl H mg/dl (65-105) Patient hx anesthesia problems: none Family hx anesthesia problems: none Results Review: All pre-operative results and documents have been reviewed as part of the pre-operative evaluation. [facility] Past Medical History Medical History Acute exacerbation of chronic obstructive pulmonary disease Allergic rhinitis Atherosclerotic heart disease of [place] coronary artery without angina pectoris Cataract, bilateral COPD (chronic obstructive pulmonary disease) Elevated troponin H/O squamous cell carcinoma Hiatal hernia HTN (hypertension), benign Hypertensive heart disease without congestive heart failure Lung mass right hilar mass with right middle lobe collapse Mild intermittent asthma Mixed hyperlipidemia Mixed hyperlipidemia [place] (myocardial infarction) Overweight (BMI 25.0-29.9) Sepsis Tobacco abuse Type 2 diabetes mellitus with mild nonproliferative diabetic retinopathy with macular edema, bilateral Type 2 diabetes mellitus without complications Surgical History Surgical History H/O percutaneous transluminal coronary angioplasty H/O sinus surgery H/O: hysterectomy History of cataract extraction with lens replacement History of coronary artery stent placement Family History Family History Sibling Hypertension Father Family history of coronary artery disease Social History Social History Smoking packs per day: 1 Smoking cigarettes per day: 20.0 Years smoked: 35 Smoking pack-years: 35.00 Smoking status: Former smoker Tobacco type: cigarettes Second hand tobacco smoke exposure: No Smoking end date: 04/17/21 Alcohol intake: former Alcohol use details: STATES EXTREMILY VERY RARELY TAKES A SIP NOW AND THEN Substance use: never Substance use type: does not use Living arrangements: with family Gender identity (if verbalized by the patient): Female Spiritual care concerns: No Anes - Eval Final PreProcedure Day of Procedure 10/03/21 08:06 Patient weight: overweight Heart: regular rate and rhythm Lungs: clear to auscultation Airway: Mallampati scale c
[2021-10-03] MEDS: LACTATED RINGERS 1,000 ML 150 ML IV CONT (08:22)
[2021-10-03] MEDS: SIMETHICONE ORAL SUSPENSION 20 MG/0.3 ML 30 ML BOTTLE 0.6 ML IRRIGATION (08:42)
[2021-10-03 08:48] VITALS: BP 132/46; PULSE 62; RESP 20; O2SAT 99
[2021-10-03 08:58] VITALS: BP 121/52; PULSE 74; RESP 18; O2SAT 99
[2021-10-03 09:08] VITALS: BP 147/77; PULSE 62; RESP 20; O2SAT 100
[2021-10-03] MEDS: HEPARIN SODIUM LOCK FLUSH 500 UNITS/5 ML VIAL IV PUSH (09:23)
== END 2021-10-03 09:37 | disposition home or self-care (01) ==
PROVIDERS: PCP Family Medicine; Visit Provider Internal Medicine Gastroenterology
PROC: 0DJ08ZZ Inspection of Upper Intestinal Tract, Via Natural or Artificial Opening Endoscopic (ICD-10-PCS; CPT 43235; principal; 2021-10-03 08:30)
DX: K21.00 Gastro-esophageal reflux disease with esophagitis, without bleeding (principal); K22.10 Ulcer of esophagus without bleeding; K44.9 Diaphragmatic hernia without obstruction or gangrene; K29.80 Duodenitis without bleeding; C34.01 Malignant neoplasm of right main bronchus; J44.9 Chronic obstructive pulmonary disease, unspecified; I25.10 Atherosclerotic heart disease of native coronary artery without angina pectoris; I11.9 Hypertensive heart disease without heart failure; J45.20 Mild intermittent asthma, uncomplicated; E78.2 Mixed hyperlipidemia; I25.2 Old myocardial infarction; E11.3213 Type 2 diabetes mellitus with mild nonproliferative diabetic retinopathy with macular edema, bilateral; Z95.5 Presence of coronary angioplasty implant and graft; Z87.891 Personal history of nicotine dependence; Z79.51 Long term (current) use of inhaled steroids; Z79.82 Long term (current) use of aspirin; Z79.84 Long term (current) use of oral hypoglycemic drugs
CPT/HCPCS: 43239; 82948; 87081; 88305; J1642; J2001; J2704; J7120

== ENCOUNTER 2021-12-12 08:34 | Outpatient (CLI) | payer MEDICARE, OTHER, SELFPAY ==
--- NOTE | ~2021-12-12 | CT_ITS ---
EXAMINATION: CT diagnostic chest w con DATE: 12/12/2021 08:54 INDICATION: Malignant neoplasm of the lung TECHNIQUE: Transaxial computed tomographic images of the chest were obtained after the administration of 75 cc of Omnipaque 300 intravenous contrast. The dose-length product (DLP) was 205.94 mGy-cm. Ite rative reconstruction was used. COMPARISON: 04/18/2021, 08/07/2021 FINDINGS: There is an approximately 3.7 x 1.8 cm right hilar mass. There is wall thickening of the ri ght mainstem bronchus. The middle lobe bronchus is occluded with complete atelectasis of the middle l obe. There is volume loss in the right hemithorax. No pleural effusion or pneumothorax. The heart siz e is normal. There are patchy subpleural reticular and groundglass opacities in the left lung. Stones are present in the upper pole of the left kidney. IMPRESSION: 1. Infiltrating right hilar mass, grossly stable, with right middle lobe collapse, consistent with hi story of squamous cell carcinoma. 2. Patchy subpleural reticular opacities of the left lung, likely sequela of prior pneumonia Reviewed, dictated and finalized at location B. IMPRESSION: 1. Infiltrating right hilar mass, grossly stable, with right middle lobe collap se, consistent with history of squamous cell carcinoma. 2. Patchy subpleural reticular opacities of the left lung, likely sequela of pr ior pneumonia
== END 2021-12-12 08:35 | disposition home or self-care (01) ==
LOC: ANHIMG 08:38
PROVIDERS: PCP Family Medicine; Visit Provider Internal Medicine Hematology & Oncology
DX: C34.90 Malignant neoplasm of unspecified part of unspecified bronchus or lung (principal); R91.8 Other nonspecific abnormal finding of lung field
CPT/HCPCS: 71260; Q9967